=== PATIENT | male | born 1960 | race Caucasian/White ===

== ENCOUNTER 2017-08-14 04:11 | Emergency (ER) | payer BC ==
[2017-08-14] MEDS ORDERED: TAMSULOSIN 0.4 MG SR CAP ONE (04:38)
[2017-08-14] MEDS ORDERED: KETOROLAC 30 MG/ML INJ ONE (04:39)
[2017-08-14] MEDS ORDERED: NA CHLORIDE 0.9% 1,000 ML ONE ×2 (04:39→07:09)
[2017-08-14 05:08] LABS: Urine Blood 2+ (NEG); Urine Glucose TRACE (NEG); Urine Protein 1+ (NEG); Urine Specific Gravity 1.025 (1.005-1.030); Urine pH 5.5 (5.0-7.0)
[2017-08-14 05:13] LABS: Absolute Lymphocytes (CBC) 1.1 K/uL (0.7-4.9); Absolute Monocytes 0.8 K/uL (0.1-1.3); Absolute Neutrophil 9.6 K/uL (1.8-8.0); Basophils % 0.6 % (0-1.3); Eosinophils % 0.3 % (0-4.4); Lymphocytes % 9.2 % (15.3-44.8); MCH 30.3 pg (27.0-35.0); MCV 89.9 fL (80-100); MPV 9.2 fL (7.6-11.3); Monocytes % 7.2 % (3.3-12.3); RBC Red Blood Cell Count 5.12 M/uL (4.33-5.43)
[2017-08-14] MEDS ORDERED: ONDANSETRON 4 MG/2 ML VIAL ONE (05:23)
[2017-08-14 05:29] LABS: Albumin 4.2 g/dL (3.4-5.0); Bilirubin Total 0.6 mg/dL (0.2-1.0); Potassium 3.6 mmol/L (3.5-5.1); Protein, Total 7.8 g/dL (6.4-8.2)
[2017-08-14] MEDS ORDERED: FENTANYL CITR 100 MCG/2 ML ONE (06:49)
--- NOTE | 2017-08-14 07:07 | EDPHYS ---
Physician Documentation [facility] Name: Iván Betancourt Age: 57 yrs Sex: Male : 1960 Arrival Date: 08/14/2017 Time: 04:11 Bed 19 Private MD: Juan Antonio Leong ED Physician Johnny Noel HPI: 08/14 04:31 This 57 yrs old Male presents to ER via Ambulatory with complaints of jose Possible Kidney Stone. 04:31 The patient presents with abdominal pain in the upper abdomen, in the lower abdomen. jose Onset: The symptoms/episode began/occurred yesterday. The patient complains of pain in the right mid back and right low back. The pain radiates to the right mid back and right low back. Onset: The symptoms/episode began/occurred 1 day(s) ago. Modifying factors: The symptoms are alleviated by nothing. the symptoms are aggravated by nothing. The patient presents with pain that is acute. The symptoms are located in the coccyx area, right mid back and right low back. Onset: The symptoms/episode began/occurred yesterday. Historical: - Allergies: 04:31 No Known Allergies; wh - Home Meds: 04:31 Vimovo 500-20 mg oral TbID 1 tab daily [Active]; metformin 750 mg Oral Tb24 3 tabs once wh daily [Active]; losartan-hydrochlorothiazide 100-25 mg oral tab 1 tab once daily [Active]; - PMHx: 04:31 Diabetes - NIDDM; Hypertension; wh - Immunization history:: Adult Immunizations unknown. - Social history:: Smoking status: Patient/guardian denies using tobacco. - Ebola Screening: : Patient negative for fever greater than or equal to 101.5 degrees Fahrenheit, and additional compatible Ebola Virus Disease symptoms Patient denies exposure to infectious person. - Family history:: not pertinent. ROS: 04:31 Constitutional: Negative for fever, chills, and weight loss, Eyes: Negative for injury, jose pain, redness, and discharge, ENT: Negative for injury, pain, and discharge, Neck: Negative for injury, pain, and swelling, Cardiovascular: Negative for chest pain, palpitations, and edema, Respiratory: Negative for shortness of breath, cough, wheezing, and pleuritic chest pain, : Negative for injury, bleeding, discharge, and swelling, MS/Extremity: Negative for injury and deformity, Skin: Negative for injury, rash, and discoloration, Neuro: Negative for headache, weakness, numbness, tingling, and seizure, Psych: Negative for depression, anxiety, suicide ideation, homicidal ideation, and hallucinations, Allergy/Immunology: Negative for hives, rash, and allergies, Endocrine: Negative for neck swelling, polydipsia, polyuria, polyphagia, and marked weight changes, Hematologic/Lymphatic: Negative for swollen nodes, abnormal bleeding, and unusual bruising. 04:31 Abdomen/GI: Positive for abdominal pain, of the right lower quadrant. 04:31 Back: Positive for pain at rest, pain with movement, of the right mid back and right low back. Exam: 04:31 Constitutional: This is a well developed, well nourished patient who is awake, alert, jose and in no acute distress. Head/Face: Normocephalic, atraumatic. Eyes: Pupils equal round and reactive to light, extra-ocular motions intact. Lids and lashes normal. Conjunctiva and sclera are non-icteric and not injected. Cornea within normal limits. Periorbital areas with no swelling, redness, or edema. ENT: Nares patent. No nasal discharge, no septal abnormalities noted. Tympanic membranes are normal and external auditory canals are clear. Oropharynx with no redness, swelling, or masses, exudates, or evidence of obstruction, uvula midline. Mucous membranes moist. Neck: Trachea midline, no thyromegaly or masses palpated, and no cervical lymphadenopathy. Supple, full range of motion without nuchal rigidity, or vertebral point tenderness. No Meningismus. Chest/axilla: Normal chest wall appearance and motion. Nontender with no deformity. No lesions are appreciated. Cardiovascular: Regular rate and rhythm with a normal S1 and S2. No gallops, murmurs, or rubs. Normal PMI, no JVD. No pulse deficits. Respiratory: Lungs have equal breath sounds bilaterally, clear to auscultation and percussion. No rales, rhonchi or wheezes noted. No increased work of breathing, no retractions or nasal flaring. Abdomen/GI: Soft, non-tender, with normal bowel sounds. No distension or tympany. No guarding or rebound. No evidence of tenderness throughout. Male : Normal genitalia with no discharge or lesions. Skin: Warm, dry with normal turgor. Normal color with no rashes, no lesions, and no evidence of cellulitis. MS/ Extremity: Pulses equal, no cyanosis. Neurovascular intact. Full, normal range of motion. Neuro: Awake and alert, GCS 15, oriented to person, place, time, and situation. Cranial nerves II-XII grossly intact. Motor strength 5/5 in all extremities. Sensory grossly intact. Cerebellar exam normal. Normal gait. Psych: Awake, alert, with orientation to person, place and time. Behavior, mood, and affect are within normal limits. 04:31 Back: pain, that is mild, of the right mid back and right low back. Vital Signs: 04:32 BP 140 / 64; Pulse 73; Resp 19; Temp 98.6; Pulse Ox 96% on R/A; wh 05:38 BP 175 / 78; Pulse 65; Resp 18; Pulse Ox 96% on R/A; wh 06:38 BP 160 / 97; Pulse 74; Resp 18; Pulse Ox 99% on R/A; wh 07:15 BP 143 / 81; Pulse 67; Resp 16; Pulse Ox 97% on R/A; em 08:29 BP 135 / 78; Pulse 61; Resp 16; Pulse Ox 99% on R/A; Pain 0/10; em MDM: 04:26 Patient medically screened. [facility] 04:33 Data reviewed: vital signs, nurses notes, lab test result(s), radiologic studies, CT [facility] scan. 08/14 04:30 Order name: CBC with Diff [facility] 08/14 04:30 Order name: Comprehensive Metabolic Panel [facility] 08/14 04:30 Order name: Urine Culture [facility] 08/14 04:31 Order name: CBC with Automated Diff; Complete Time: 05:37 [facility] 08/14 04:31 Order name: Comprehensive Metabolic Panel; Complete Time: 05:37 [facility] 08/14 04:31 Order name: Urine Culture [facility] 08/14 04:30 Order name: CT Stone Protocol [facility] 08/14 05:04 Order name: Urine Dipstick--Ancillary (enter results) 08/14 05:06 Order name: Urine Dipstick-Ancillary; Complete Time: 05:37 [facility] 08/14 07:06 Order name: Abdomen 1 View (KUB) XRAY [facility] 08/14 04:30 Order name: Urine Dipstick-Ancillary (obtain specimen); Complete Time: 05:06 jose Administered Medications: 05:05 Drug: TORadol 30 mg Route: IVP; Site: left forearm; wh 07:00 Follow up: Response: No adverse reaction; Pain is decreased em 05:05 Drug: Flomax 0.4 mg Route: PO; wh 07:00 Follow up: Response: No adverse reaction em 05:06 Drug: NS 0.9% 1000 ml Route: IV; Rate: 1 bolus; Site: left forearm; wh 08:10 Follow up: IV Status: Completed infusion; IV Intake: 1000ml em 05:29 Drug: Zofran 4 mg Route: IVP; Site: left forearm; bp 07:14 Follow up: Response: No adverse reaction; Nausea is decreased em 06:50 Drug: fentaNYL (PF) 50 mcg Route: IVP; Site: left forearm; wh 07:14 Follow up: Response: No adverse reaction; Pain is decreased em 07:13 Drug: Rocephin - (cefTRIAXone) 1 grams Route: IVPB; Infused Over: 30 mins; Site: left ss forearm; 08:03 Follow up: Response: No adverse reaction; IV Status: Completed infusion em 07:14 Drug: NS 0.9% 1000 ml Route: IV; Rate: 1 bolus; Site: left forearm; em 08:03 Follow up: IV Status: Completed infusion; IV Intake: 1000ml em Disposition: 08/14/17 07:07 Discharged to Home. Impression: Hydronephrosis with renal and ureteral calculous obstruction, Unspecified kidney failure, Type 2 diabetes mellitus. - Condition is Stable. - Discharge Instructions: Type 2 Diabetes Mellitus, Adult, Kidney Stones, Kidney Stones, Yaoc-ed-Kimp, Hydronephrosis, Dietary Guidelines to Help Prevent Kidney Stones, Type 2 Diabetes Mellitus, Adult, [id number]. - Prescriptions for Tylenol- Codeine #3 300-30 mg Oral Tablet - take 2 tablet by ORAL route every 6 hours As needed; 30 tablet. Zofran 4 mg Oral Tablet - take 1 tablet by ORAL route every 12 hours As needed; 20 tablet. Flomax 0.4 mg Oral Capsule, Sust. Release 24 hr - take 1 capsule by ORAL route once daily 1/2 hour following the same meal each day; 30 capsule. Cipro 500 mg Oral Tablet - take 1 tablet by ORAL route every 12 hours for 7 days; 14 tablet. - Medication Reconciliation Form, Thank You Letter, Antibiotic Education, Prescription Opioid Use form. - Follow up: Juan Antonio Leong; When: 2 - 3 days; Reason: Recheck today's complaints, Continuance of care, Re-evaluation by your physician. Follow up: Rene Morgan; When: 2 - 3 days; Reason: Recheck today's complaints, Continuance of care, Re-evaluation by your physician. Follow up: Rene Morgan MD; When: Tomorrow; Reason: Recheck today's complaints, Re-evaluation by your physician. - Problem is new. - Symptoms have improved. Signatures: Dispatcher [employer] EDMS Johnny Noel MD MD cha Therrien, Shelly, INFECTIOUS WASTE TECHNICIAN-C INFECTIOUS WASTE TECHNICIAN-Csnw Lul Watson, CIRCULAR HEAD SAW OPERATOR CIRCULAR HEAD SAW OPERATOR em Sandi De Luna, Sandy Reyna RN, Brian, RN RN bp Corrections: (The following items were deleted from the chart) 08:31 07:07 08/14/2017 07:07 Discharged to Home. Impression: Hydronephrosis with renal and em ureteral calculous obstruction; Unspecified kidney failure; Type 2 diabetes mellitus. Condition is Stable. Discharge Instructions: Kidney Stones, Kidney Stones, [id number], Hydronephrosis, Dietary Guidelines to Help Prevent Kidney Stones, Type 2 Diabetes Mellitus, Adult, Type 2 Diabetes Mellitus, Adult, [id number]. Prescriptions for Tylenol-Codeine #3 300-30 mg Oral Tablet - take 2 tablet by ORAL route every 6 hours As needed; 30 tablet, Zofran 4 mg Oral Tablet - take 1 tablet by ORAL route every 12 hours As needed; 20 tablet, Flomax 0.4 mg Oral Capsule, Sust. Release 24 hr - take 1 capsule by ORAL route once daily 1/2 hour following the same meal each day; 30 capsule, Cipro 500 mg Oral Tablet - take 1 tablet by ORAL route every 12 hours for 7 days; 14 tablet. and Forms are Medication Reconciliation Form, Thank You Letter, Antibiotic Education, Prescription Opioid Use. Follow up: Juan Antonio Leong; When: 2 - 3 days; Reason: Recheck today's complaints, Continuance of care, Re-evaluation by your physician. Follow up: Rene Morgan; When: Tomorrow; Reason: Recheck today's complaints, Re-evaluation by your physician. Problem is new. Symptoms have improved. jose
--- NOTE | 2017-08-14 07:07 | ER ---
Nurse's Notes [facility] Name: Iván Betancourt Age: 57 yrs Sex: Male : 1960 Arrival Date: 08/14/2017 Time: 04:11 Bed 19 Private MD: Juan Antonio Leong Diagnosis: Hydronephrosis with renal and ureteral calculous obstruction;Unspecified kidney failure;Type 2 diabetes mellitus Presentation: 08/14 04:22 Presenting complaint: Patient states: states he has Hx of Kidney stones, was wh experiencing flank back pain since 4:00 pm yesterday, was taking Ibuprofen 800 mg for pain. Pt also C/O vomiting and cold sweats due to pain. Transition of care: patient was not received from another setting of care. Onset of symptoms was August 13, 2017. Risk Assessment: Do you want to hurt yourself or someone else? Patient reports no desire to harm self or others. Initial Sepsis Screen: Does the patient meet any 2 criteria? No. Patient's initial sepsis screen is negative. Does the patient have a suspected source of infection? No. Patient's initial sepsis screen is negative. Care prior to arrival: None. 04:22 Method Of Arrival: Ambulatory 04:22 Acuity: KAYE 3 Triage Assessment: 04:25 General: Appears in no apparent distress. General: Behavior is calm, cooperative, wh appropriate for age. Pain: Complains of pain in lower back pain Pain does not radiate. Pain currently is 0 out of 10 on a pain scale. at worst was 9 out of 10 on a pain scale. Pain began 1 day ago. GI: No signs and/or symptoms were reported involving the gastrointestinal system. Historical: - Allergies: :31 No Known Allergies; - Home Meds: : Vimovo 500-20 mg oral TbID 1 tab daily [Active]; metformin 750 mg Oral Tb24 3 tabs once wh daily [Active]; losartan-hydrochlorothiazide 100-25 mg oral tab 1 tab once daily [Active]; - PMHx: 04:31 Diabetes - NIDDM; Hypertension; wh - Immunization history:: Adult Immunizations unknown. - Social history:: Smoking status: Patient/guardian denies using tobacco. - Ebola Screening: : Patient negative for fever greater than or equal to 101.5 degrees Fahrenheit, and additional compatible Ebola Virus Disease symptoms Patient denies exposure to infectious person. - Family history:: not pertinent. Screenin:24 Abuse screen: Denies threats or abuse. Denies injuries from another. Nutritional wh screening: No deficits noted. Tuberculosis screening: No symptoms or risk factors identified. Fall Risk None identified. Assessment: 04:26 GI: Bowel sounds present X 4 quads. Abd is soft and non tender X 4 quads. wh 05:35 General: Appears in no apparent distress. Behavior is calm, cooperative, appropriate wh for age. Neuro: Level of Consciousness is awake, alert, obeys commands, Oriented to person, place, time, situation. Cardiovascular: Denies chest pain, Capillary refill < 3 seconds. Respiratory: Airway is patent Respiratory effort is even, unlabored, Respiratory pattern is regular, symmetrical. : Reports back pain and testicular pain, Pt states Hx of renal stones. EENT: No signs and/or symptoms were reported regarding the EENT system. Derm: Skin is intact, is healthy with good turgor, Skin is pink, warm \T\ dry. normal. Musculoskeletal: Range of motion: intact in all extremities. 06:38 Reassessment: Patient appears in no apparent distress at this time. Patient and/or wh family updated on plan of care and expected duration. Pain level reassessed. Patient is alert, oriented x 3, equal unlabored respirations, skin warm/dry/pink. 07:15 Reassessment: Patient appears in no apparent distress at this time. Patient and/or em family updated on plan of care and expected duration. Pain level reassessed. Patient is alert, oriented x 3, equal unlabored respirations, skin warm/dry/pink. pending NS bolus, will be discharged after completed, resting comfortably with eyes closed, denies pain Patient denies pain at this time. Patient states feeling better. 08:06 Reassessment: NS bolus completed, pending KUB X-ray. em Vital Signs: 04:32 BP 140 / 64; Pulse 73; Resp 19; Temp 98.6; Pulse Ox 96% on R/A; wh 05:38 BP 175 / 78; Pulse 65; Resp 18; Pulse Ox 96% on R/A; wh 06:38 BP 160 / 97; Pulse 74; Resp 18; Pulse Ox 99% on R/A; wh 07:15 BP 143 / 81; Pulse 67; Resp 16; Pulse Ox 97% on R/A; em 08:29 BP 135 / 78; Pulse 61; Resp 16; Pulse Ox 99% on R/A; Pain 0/10; em ED Course: 04:11 Patient arrived in ED. es 04:12 Juan Antonio Leong MD is Private Physician. es 04:17 Sandy Saucedo is Primary Nurse. wh 04:24 Triage completed. wh 04:26 oJhnny Noel MD is Attending Physician. jose 04:26 Arm band placed on left wrist. wh 04:31 Patient has correct armband on for positive identification. Placed in gown. Bed in low wh position. Call light in reach. Side rails up X 1. Pulse ox on. NIBP on. 04:49 Radiology exam delayed due to Labs being drawn at this time. sj 05:01 Inserted saline lock: 22 gauge in left forearm, using aseptic technique. Blood wh collected. 05:[address] via wheelchair. kw1 05:13 CT Stone Protocol In Process Unspecified. EDMS 05:14 CT completed. Patient tolerated procedure well. Patient moved back from CT. kw1 07:07 Juan Antonio Leong MD is Referral Physician. jose 07:07 Rene Morgan MD is Referral Physician. jose 07:07 Referral Physician role handed off by Rene Morgan MD jose 07:07 Rene Morgan MD is Referral Physician. jose 07:17 No provider procedures requiring assistance completed. em 08:20 Abdomen 1 View (KUB) XRAY In Process Unspecified. EDMS 08:28 IV discontinued, intact, bleeding controlled, No redness/swelling at site. Pressure em dressing applied. Administered Medications: 05:05 Drug: TORadol 30 mg Route: IVP; Site: left forearm; wh 07:00 Follow up: Response: No adverse reaction; Pain is decreased em 05:05 Drug: Flomax 0.4 mg Route: PO; wh 07:00 Follow up: Response: No adverse reaction em 05:06 Drug: NS 0.9% 1000 ml Route: IV; Rate: 1 bolus; Site: left forearm; wh 08:10 Follow up: IV Status: Completed infusion; IV Intake: 1000ml em 05:29 Drug: Zofran 4 mg Route: IVP; Site: left forearm; bp 07:14 Follow up: Response: No adverse reaction; Nausea is decreased em 06:50 Drug: fentaNYL (PF) 50 mcg Route: IVP; Site: left forearm; 07:14 Follow up: Response: No adverse reaction; Pain is decreased em 07:13 Drug: Rocephin - (cefTRIAXone) 1 grams Route: IVPB; Infused Over: 30 mins; Site: left ss forearm; 08:03 Follow up: Response: No adverse reaction; IV Status: Completed infusion em 07:14 Drug: NS 0.9% 1000 ml Route: IV; Rate: 1 bolus; Site: left forearm; em 08:03 Follow up: IV Status: Completed infusion; IV Intake: 1000ml em Intake: 08:03 IV: 1000ml; Total: 1000ml. em 08:10 IV: 1000ml; Total: 2000ml. em Outcome: 07:07 Discharge ordered by . [facility] 08:29 Discharged to home ambulatory. em 08:29 Condition: good 08:29 Discharge instructions given to patient, Instructed on discharge instructions, follow up and referral plans. medication usage, Demonstrated understanding of instructions, follow-up care, medications, Prescriptions given X 4. 08:31 Patient left the ED. em Signatures: Dispatcher [employer] EDMS Johnny Noel MD MD cha Salyer, Cher Keating Edgar, FABRIC WORKER FABRIC WORKER Sandi Campbell, Sandy Reyna RN, Brian, RN RN Marimar Kwon kw1 Corrections: (The following items were deleted from the chart) 05:03 04:42 Patient moved to [place] via wheelchair. kw1 kw1
[2017-08-14] MEDS ORDERED: CEFTRIAXONE/SWI 1gm 1 GM/10 ML SYR ONE (07:09)
--- NOTE | 2017-08-14 11:11 | RAD REPORT ---
EXAM DESCRIPTION: CT - Stone Protocol - 08/14/2017 7:07 am CLINICAL HISTORY: Flank pain. Abd pain;Flank pain COMPARISON: No comparisons TECHNIQUE: Axial images were obtained without oral or IV contrast. Lack of contrast limits solid org an and vascular assessment. The [id number] spans the entirety of the system partially obscuring uppermost abdomen and lung bases. Coronal reformatted images were obtained and reviewed. All CT scans are performed using dose optimization technique as appropriate and may include automated exposure control or mA/KV adjustment according to patient size. FINDINGS: The lower lung [place] are clear. Small ventral hernia. Imaged portions of the liver and spleen show no suspicious findings on non-contrast imaging. The panc reas and adrenal glands are normal. No pathologic lymphadenopathy in the abdomen or pelvis. 2 mm calculus is present at the right UVJ resulting moderate right hydronephrosis. Additional bilater al nephrolithiasis is present including 6 mm calculus in the upper pole right kidney and 15 mm calcul us (950 HU) in the upper pole left kidney. No bowel obstruction, free air, free fluid or abscess. Normal appendix noted. No significant bony abnormality. IMPRESSION: 2 mm right UVJ stone resulting in moderate right hydronephrosis. Additional bilateral nephrolithiasis as described.
--- NOTE | 2017-08-14 11:52 | RAD REPORT ---
EXAM DESCRIPTION: RAD - Abdomen 1 View (KUB) - 08/14/2017 8:20 am CLINICAL HISTORY: FLANK PAIN Pain COMPARISON: Stone Protocol dated 08/14/2017 FINDINGS: The bowel gas pattern is non-obstructive. No evidence of free air or pneumatosis. Calcific ations superimposed on both kidneys compatible with bilateral nephrolithiasis. No clearly visible pel batsheva calculus.
== END 2017-08-14 08:31 | disposition home or self-care (01) ==
LOC: ER 04:11
DX: N13.2 Hydronephrosis with renal and ureteral calculous obstruction (principal); N19 Unspecified kidney failure; E11.9 Type 2 diabetes mellitus without complications; I10 Essential (primary) hypertension
CPT/HCPCS: 36415; 74018; 74176; 76377; 80053; 81003; 85025; 87086; 87088; 96361; 96365; 96375; 99284; J0696; J2405; J3010; J7030

== ENCOUNTER 2022-07-16 19:28 | Emergency (ER) | payer BC ==
--- OUTSIDE RECORDS SUMMARY | 2022-07-16 19:32 | XMS REPORT | Continuity of Care Document ---
:1960 Author Organization [facility] t Address [address] [place] [address] [place] [id number] Care Team Providers Name Role Phone Padilla Cook Primary Care Physician Unavailable Alfredo Castellanos MD Attending Clinician Pilar Plata Attending Clinician Unavailable ALFREDO CASTELLANOS Attending Clinician Unavailable Doctor Unassigned, [place] Attending Clinician Unavailable Jm Matthews MD Attending Clinician Payers Payer Name Policy Type Policy Number Effective Date Expiration Date S ource Problems This patient has no known problems. Allergies, Adverse Reactions, Alerts Allergy Allergy Status Severity Reaction(s) Onset Inactive Treating Comm ents Source Name Type Date Date Clinician NO KNOWN Drug Active Univers ALLERGIE Class ity of S [facility] Social History Social Habit Start Date Stop Date Quantity Comments Source Exposure to Not sure [facility] SARS-CoV-2 (event) Medica l Branch Tobacco use and 2017-06-15 2017-06-15 Never used [facility] exposure 00:00:00 00:00:00 [facility] Sex Ass[birth year] At [birth year] [facility] 00:00:00 00:00:00 [facility] Smoking Status Start Date Stop Date Source Never smoker [facility] Medications Ordered Filled Start Stop Current Ordering Indication Dosage Frequency Signature Comments Components Source Medication Medication Date Date Medication? Clinician (SIG) Name Name metformin 2020-02 Yes [id number] 2250mg Take 3 Univers ER 750 mg 1-22 tablets by ity of 24 hr 00:00: mouth [place] tablet 00 daily with Medical breakfast. Branch metformin 2019-02 Yes [id number] 2250mg Take 3 Univers ER 750 mg 0-30 tablets by ity of 24 hr 00:00: mouth [place] tablet 00 daily with Medical breakfast. Branch metformin 2019-02 Yes [id number] 2250mg Take 3 Univers ER 750 mg 0-30 tablets by ity of 24 hr 00:00: mouth [place] tablet 00 daily with Medical breakfast. Branch metformin 2019-02 Yes [id number] 2250mg Take 3 Univers ER 750 mg 0-30 tablets by ity of 24 hr 00:00: mouth [place] tablet 00 daily with Medical breakfast. Branch metformin 2019-02- No [id number] 2250mg Take 3 Univers ER 750 mg 0-30 11-22 tablets by ity of 24 hr 00:00: 00:00 mouth [place] tablet 00 :00 daily with Medical breakfast. Branch CONTOUR 2020-0 Yes Use as Univers NEXT EZ 4-14 directed ity of METER Kit 00:00: to test [place] 00 blood Medical glucose Branch once daily. Dx E11.9BIN 30160,PCN3 F,groupNTX 70,idNRX79 [id number] MICROLET 2020-0 Yes Use as Univers LANCET Misc 4-14 directed ity of 00:00: to test [place] 00 blood Medical glucose Branch once daily. Dx E 11.9 CONTOUR 2020-0 Yes Use as Univers NEXT TEST 4-14 directed ity of STRIPS 00:00: to test [facility] 00 blood Medical glucose Branch once daily. Dx E 11.9 CONTOUR 2020-0 Yes Use as Univers NEXT EZ 4-14 directed ity of METER Kit 00:00: to test [place] 00 blood Medical glucose Branch once daily. Dx E11.9BIN 74511,PCN3 F,groupNTX 70,idNRX79 [id number] MICROLET 2020-0 Yes Use as Univers LANCET Misc 4-14 directed ity of 00:00: to test [place] 00 blood Medical glucose Branch once daily. Dx E 11.9 CONTOUR 2020-0 Yes Use as Univers NEXT TEST 4-14 directed ity of STRIPS 00:00: to test [facility] 00 blood Medical glucose Branch once daily. Dx E 11.9 CONTOUR 2020-0 Yes Use as Univers NEXT EZ 4-14 directed ity of METER Kit 00:00: to test [place] 00 blood Medical glucose Branch once daily. Dx E11.9BIN 89036,PCN3 F,groupNTX 70,idNRX79 [id number] MICROLET 2020-0 Yes Use as Univers LANCET Misc 4-14 directed ity of 00:00: to test [place] 00 blood Medical glucose Branch once daily. Dx E 11.9 CONTOUR 2020-0 Yes Use as Univers NEXT TEST 4-14 directed ity of STRIPS 00:00: to test [place] strip 00 blood Medical glucose Branch once daily. Dx E 11.9 CONTOUR 2020-0 Yes Use as Univers NEXT EZ 4-14 directed ity of METER Kit 00:00: to test [place] 00 blood Medical glucose Branch once daily. Dx E11.9BIN 24705,PCN3 F,groupNTX 70,idNRX79 [id number] MICROLET 2020-0 Yes Use as Univers LANCET Misc 4-14 directed ity of 00:00: to test [place] 00 blood Medical glucose Branch once daily. Dx E 11.9 CONTOUR 2020-0 Yes Use as Univers NEXT TEST 4-14 directed ity of STRIPS 00:00: to test [place] strip 00 blood Medical glucose Branch once daily. Dx E 11.9 CONTOUR 2020-0 Yes Use as Univers NEXT EZ 4-14 directed ity of METER Kit 00:00: to test [place] 00 blood Medical glucose Branch once daily. Dx E11.9BIN 40147,PCN3 F,groupNTX 70,idNRX79 [id number] MICROLET 2020-0 Yes Use as Univers LANCET Misc 4-14 directed ity of 00:00: to test [place] 00 blood Medical glucose Branch once daily. Dx E 11.9 CONTOUR 2020-0 Yes Use as Univers NEXT TEST 4-14 directed ity of STRIPS 00:00: to test [place] strip 00 blood Medical glucose Branch once daily. Dx E 11.9 CONTOUR 2020-0 Yes Use as Univers NEXT EZ 4-14 directed ity of METER Kit 00:00: to test [place] 00 blood Medical glucose Branch once daily. Dx E11.9BIN 60905,PCN3 F,groupNTX 70,idNRX79 [id number] MICROLET 2020-0 Yes Use as Univers LANCET Misc 4-14 directed ity of 00:00: to test [place] 00 blood Medical glucose Branch once daily. Dx E 11.9 CONTOUR 2020-0 Yes Use as Univers NEXT TEST 4-14 directed ity of STRIPS 00:00: to test [place] strip 00 blood Medical glucose Branch once daily. Dx E 11.9 CONTOUR 2020-0 Yes Use as Univers NEXT EZ 4-14 directed ity of METER Kit 00:00: to test [place] 00 blood Medical glucose Branch once daily. Dx E11.9BIN 84750,PCN3 F,groupNTX 70,idNRX79 [id number] MICROLET 2020-0 Yes Use as Univers LANCET Misc 4-14 directed ity of 00:00: to test [place] 00 blood Medical glucose Branch once daily. Dx E 11.9 CONTOUR 2020-0 Yes Use as Univers NEXT TEST 4-14 directed ity of STRIPS 00:00: to test [place] strip 00 blood Medical glucose Branch once daily. Dx E 11.9 CONTOUR 2020-0 Yes Use as Univers NEXT EZ 4-14 directed ity of METER Kit 00:00: to test [place] 00 blood Medical glucose Branch once daily. Dx E11.9BIN 05848,PCN3 F,groupNTX 70,idNRX79 [id number] MICROLET 2020-0 Yes Use as Univers LANCET Misc 4-14 directed ity of 00:00: to test [place] 00 blood Medical glucose Branch once daily. Dx E 11.9 CONTOUR 2020-0 Yes Use as Univers NEXT TEST 4-14 directed ity of STRIPS 00:00: to test [place] strip 00 blood Medical glucose Branch once daily. Dx E 11.9 CONTOUR 2020-0 Yes Use as Univers NEXT EZ 4-14 directed ity of METER Kit 00:00: to test [place] 00 blood Medical glucose Branch once daily. Dx E11.9BIN 11496,PCN3 F,groupNTX 70,idNRX79 [id number] MICROLET 2020-0 Yes Use as Univers LANCET Misc 4-14 directed ity of 00:00: to test [place] 00 blood Medical glucose Branch once daily. Dx E 11.9 CONTOUR 2020-0 Yes Use as Univers NEXT TEST 4-14 directed ity of STRIPS 00:00: to test [place] strip 00 blood Medical glucose Branch once daily. Dx E 11.9 metformin 2020-0 Yes [id number] 2250mg Take 3 Univers ER 750 mg 4-10 tablets by ity of 24 hr 00:00: mouth [place] tablet 00 daily with Medical breakfast. Branch metformin 2020-0 Yes [id number] 2250mg Take 3 Univers ER 750 mg 4-10 tablets by ity of 24 hr 00:00: mouth [place] tablet 00 daily with Medical breakfast. Branch metformin 2020-0 Yes [id number] 2250mg Take 3 Univers ER 750 mg 4-10 tablets by ity of 24 hr 00:00: mouth [place] tablet 00 daily with Medical breakfast. Branch metformin 2020-0 Yes [id number] 2250mg Take 3 Univers ER 750 mg 4-10 tablets by ity of 24 hr 00:00: mouth [place] tablet 00 daily with Medical breakfast. Branch metformin 2020-0 Yes [id number] 2250mg Take 3 Univers ER 750 mg 4-10 tablets by ity of 24 hr 00:00: mouth [place] tablet 00 daily with Medical breakfast. Branch metformin 2020-0 Yes [id number] 2250mg Take 3 Univers ER 750 mg 4-10 tablets by ity of 24 hr 00:00: mouth [place] tablet 00 daily with Medical breakfast. Branch metformin 2020-0 2020- No [id number] 2250mg Take 3 Univers ER 750 mg 4-10 10-30 tablets by ity of 24 hr 00:00: 00:00 mouth [place] tablet 00 :00 daily with Medical breakfast. Branch metformin 2020-0 2020- No [id number] 2250mg Take 3 Univers ER 750 mg 4-10 10-30 tablets by ity of 24 hr 00:00: 00:00 mouth [place] tablet 00 :00 daily with Medical breakfast. Branch blood sugar 2020-0 Yes Use as Univ ers diagnostic 05-22 directed ity o f strip 00:00: to check [place] 00 blood Medical sugar BID Branch DX: E11.9 Test [facility] Brand test strips. blood sugar 2020-0 Yes Use as Univ ers diagnostic 05-22 directed ity o f strip 00:00: to check [place] 00 blood Medical sugar BID Branch DX: E11.9 Test [facility] Brand test strips. blood sugar 2020-0 2020- No Use as Uni vers diagnostic 05-22 directed ity of strip 00:00: 00:00 to check [place] 00 :00 blood Medical sugar BID Branch DX: E11.9 Test [facility] Brand test strips. METFORMIN 2020-0 Yes [id number] 2250mg TAKE 3 Univers ER 750 mg 4-07 TABLETS BY ity of 24 hr 00:00: MOUTH [place] tablet 00 DAILY WITH Medical BREAKFAST Branch METFORMIN 2020-0 Yes [id number] 2250mg TAKE 3 Univers ER 750 mg 4-07 TABLETS BY ity of 24 hr 00:00: MOUTH [place] tablet 00 DAILY WITH Medical BREAKFAST Branch METFORMIN 2020-0 2020- No [id number] 2250mg TAKE 3 Univers ER 750 mg 4-07 04-10 TABLETS BY ity of 24 hr 00:00: 00:00 MOUTH [place] tablet 00 :00 DAILY WITH Medical BREAKFAST Branch METFORMIN 2019-0 Yes [id number] 2250mg TAKE 3 Univers ER 750 mg 9-08 TABLETS BY ity of 24 hr 00:00: MOUTH [place] tablet 00 DAILY WITH Medical BREAKFAST Branch METFORMIN 2019-0 2020- No [id number] 2250mg TAKE 3 Univers ER 750 mg 9-08 04-07 TABLETS BY ity of 24 hr 00:00: 00:00 MOUTH [place] tablet 00 :00 DAILY WITH Medical BREAKFAST Branch METFORMIN 2019-0 2019- No [id number] 2250mg TAKE 3 Univers ER 750 mg 5-13 09-05 TABLETS BY ity of 24 hr 00:00: 00:00 MOUTH [place] tablet 00 :00 DAILY WITH Medical BREAKFAST Branch blood-gluco 2018-0 Yes Use as Univ ers se meter 7-12 directed ity of (RELION 00:00: to check [place] CONFIRM/CHALINO 00 blood Medical RO) Test sugar Branch Strips daily DX: E11.9 blood-gluco 2017-0 Yes Use as Univ ers se meter 7-12 directed ity of (RELION 00:00: to check [place] CONFIRM/CHAL[place] 00 blood Medical RO) Test sugar Branch Strips daily DX: E11.9 blood-gluco 2018-0 Yes Use as Univ ers se meter 7-12 directed ity of (RELION 00:00: to check [place] CONFIRM/CHALINO 00 blood Medical RO) Test sugar Branch Strips daily DX: E11.9 blood-gluco 2018-0 Yes Use as Univ ers se meter 7-12 directed ity of (RELION 00:00: to check [place] CONFIRM/CHALINO 00 blood Medical RO) Test sugar Branch Strips daily DX: E11.9 blood-gluco 2018-0 2020- No Use as Uni vers se meter 7-12 04-14 directed ity of (RELION 00:00: 00:00 to check [place] CONFIRM/CHALINO 00 :00 blood Medical RO) Test sugar Branch Strips daily DX: E11.9 Blood-Gluco 2018-0 Yes Use as Univ ers se Meter 7-06 directed ity of Kit 00:00: to check [place] 00 blood Medical sugar Branch daily DX: E11.9 lancets 33 2018-0 Yes Use as Unive rs gauge Misc 7-06 directed ity o f 00:00: to check [place] 00 blood Medical sugar Branch daily DX: E11.9 Blood-Gluco 2018-0 Yes Use as Univ ers se Meter 7-06 directed ity of Kit 00:00: to check [place] 00 blood Medical sugar Branch daily DX: E11.9 lancets 33 2018-0 Yes Use as Unive rs gauge Misc 7-06 directed ity o f 00:00: to check [place] 00 blood Medical sugar Branch daily DX: E11.9 Blood-Gluco 2018-0 Yes Use as Univ ers se Meter 7-06 directed ity of Kit 00:00: to check [place] 00 blood Medical sugar Branch daily DX: E11.9 lancets 33 2018-0 Yes Use as Unive rs gauge Misc 7-06 directed ity o f 00:00: to check [place] 00 blood Medical sugar Branch daily DX: E11.9 Blood-Gluco 2018-0 Yes Use as Univ ers se Meter 7-06 directed ity of Kit 00:00: to check [place] 00 blood Medical sugar Branch daily DX: E11.9 lancets 33 2018-0 Yes Use as Unive rs gauge Misc 7-06 directed ity o f 00:00: to check [place] 00 blood Medical sugar Branch daily DX: E11.9 Blood-Gluco 2018-0 2020- No Use as Uni vers se Meter 714 directed ity of Kit 00:00: 00:00 to check [place] 00 :00 blood Medical sugar Branch daily DX: E11.9 lancets 33 2018-0 2020- No Use as Univ ers gauge Misc 08-1914 directed ity of 00:00: 00:00 to check [place] 00 :00 blood Medical sugar Branch daily DX: E11.9 losartan-hy 2018-0 Yes TK 1 T PO U nivers drochloroth 3-14 QD ity of iazide 00:00: [place] 100-25 mg 00 Medical per tablet Branch losartan-hy 2018-0 Yes TK 1 T PO U nivers drochloroth 3-14 QD ity of iazide 00:00: [place] 100-25 mg 00 Medical per tablet Branch losartan-hy 2018-0 Yes TK 1 T PO U nivers drochloroth 3-14 QD ity of iazide 00:00: [place] 100-25 mg 00 Medical per tablet Branch losartan-hy 2017-0 Yes TK 1 T PO U nivers drochloroth 3-14 QD ity of iazide 00:00: [place] 100-25 mg 00 Medical per tablet Branch losartan-hy 2017-0 Yes TK 1 T PO U nivers drochloroth 3-14 QD ity of iazide 00:00: [place] 100-25 mg 00 Medical per tablet Branch losartan-hy Yes TK 1 T PO U nivers drochloroth 3-14 QD ity of iazide 00:00: [place] 100-25 mg 00 Medical per tablet Branch losartan-hy Yes TK 1 T PO U nivers drochloroth 3-14 QD ity of iazide 00:00: [place] 100-25 mg 00 Medical per tablet Branch losartan-hy Yes TK 1 T PO U nivers drochloroth 3-14 QD ity of iazide 00:00: [place] 100-25 mg 00 Medical per tablet Branch losartan-hy Yes TK 1 T PO U nivers drochloroth 3-14 QD ity of iazide 00:00: [place] 100-25 mg 00 Medical per tablet Branch losartan-hy 2017-0 Yes TK 1 T PO U nivers drochloroth 3-14 QD ity of iazide 00:00: [place] 100-25 mg 00 Medical per tablet Branch losartan-hy 2017-0 Yes TK 1 T PO U nivers drochloroth 3-14 QD ity of iazide 00:00: [place] 100-25 mg 00 Medical per tablet Branch losartan-hy 2017-0 Yes TK 1 T PO U nivers drochloroth 3-14 QD ity of iazide 00:00: [place] 100-25 mg 00 Medical per tablet Branch losartan-hy 2017-0 Yes TK 1 T PO U nivers drochloroth 3-14 QD ity of iazide 00:00: [place] 100-25 mg 00 Medical per tablet Branch VIMOVO 2018-0 Yes Univers 500-20 mg 3-06 ity of per tablet 00:00: [place] 00 Medical Branch VIMOVO 2018-0 Yes Univers 500-20 mg 3-06 ity of per tablet 00:00: [place] 00 Medical Branch VIMOVO 2018-0 Yes Univers 500-20 mg 3-06 ity of per tablet 00:00: [place] [address] Medical Branch VIMOVO 2018-0 Yes Univers 500-20 mg 3-06 ity of per tablet 00:00: [place] [address] Medical Branch VIMOVO 2018-0 Yes Univers 500-20 mg 3-06 ity of per tablet 00:00: [place] [address] Medical Branch VIMOVO 2018-0 Yes Univers 500-20 mg 3-06 ity of per tablet 00:00: [place] [address] Medical Branch VIMOVO 2018-0 Yes Univers 500-20 mg 3-06 ity of per tablet 00:00: [place] [address] Medical Branch VIMOVO 2018-0 Yes Univers 500-20 mg 3-06 ity of per tablet 00:00: [place] [address] Medical Branch VIMOVO 2018-0 Yes Univers 500-20 mg 3-06 ity of per tablet 00:00: [place] [address] Medical Branch VIMOVO 2018-0 Yes Univers 500-20 mg 3-06 ity of per tablet 00:00: [place] [address] Medical Branch VIMOVO 2018-0 Yes Univers 500-20 mg 3-06 ity of per tablet 00:00: [place] [address] Medical Branch VIMOVO 2018-0 Yes Univers 500-20 mg 3-06 ity of per tablet 00:00: [place] [address] Medical Branch VIMOVO 2018-0 Yes Univers 500-20 mg 3-06 ity of per tablet 00:00: [place] [address] Medical Branch ibuprofen 2018-0 Yes Univers 800 mg 1-22 ity of tablet 00:00: [place] [address] Medical Branch ibuprofen 2018-0 Yes Univers 800 mg 1-22 ity of tablet 00:00: [place] [address] Medical Branch ibuprofen 2018-0 Yes Univers 800 mg 1-22 ity of tablet 00:00: [place] [address] Medical Branch ibuprofen 2018-0 Yes Univers 800 mg 1-22 ity of tablet 00:00: [place] [address] Medical Branch ibuprofen 2018-0 Yes Univers 800 mg 1-22 ity of tablet 00:00: [place] [address] Medical Branch ibuprofen 2018-0 Yes Univers 800 mg 1-22 ity of tablet 00:00: [place] [address] Medical Branch ibuprofen 2018-0 Yes Univers 800 mg 1-22 ity of tablet 00:00: [place] [address] Medical Branch ibuprofen 2018-0 Yes Univers 800 mg 1-22 ity of tablet 00:00: [place] [address] Medical Branch ibuprofen 2018-0 Yes Univers 800 mg 1-22 ity of tablet 00:00: [place] [facility] Branch ibuprofen 2018-0 Yes Univers 800 mg 1-22 ity of tablet 00:00: [place] [facility] Branch ibuprofen 2018-0 Yes Univers 800 mg 1-22 ity of tablet 00:00: [place] [facility] Branch ibuprofen 2018-0 Yes Univers 800 mg 1-22 ity of tablet 00:00: [address] Branch ibuprofen 2018-0 Yes Univers 800 mg 1-22 ity of tablet 00:00: [address] Vital Signs Vital Name Observation Time Observation Value Comments Source Systolic blood 2019-12-14 21:01:00 131 mm[Hg] [facility]iver [facility] Diastolic blood 2019-12-14 21:01:00 89 mm[Hg] Unive rsity [facility] Heart rate 2019-12-14 21:01:00 97 /min [facility] Body height 2019-12-14 21:01:[address] [facility] Body weight 2019-12-14 21:01:[address] [facility] BMI 2019-12-14 21:01:00 39.82 kg/m2 [facility] Procedures Procedure Date / Time Performing Clinician Source Performed LIPID PANEL-Q 2019-12-31 15:37:00 Alfredo Castellanos [facility] COMPREHENSIVE 2019-12-31 15:37:00 Alfredo Castellanos [facility] METABOLIC$PANEL W/EGFR-Q [facility] CONSENT/REFUSAL FOR 2019-12-14 20:41:36 Doctor Unassigned, No [facility] DIAGNOSIS AND TREATMENT [facility] ASSIGNMENT OF BENEFITS 2019-12-14 20:41:19 Doctor Unassigned, No [facility] POCT HEMOGLOBIN A1C TEST 2019-12-14 00:00:00 [facility] Start End Encounter Admission Attending Care Care Encounter Source Date/Time Date/Time Type Type Clinicians Facility Department ID 2021-01-02 2021-01-02 Telephone TAYLA Castellanos [id number] [facility] 00:00:00 00:00:00 Alfredo ISIDRO [id number] i alvin [facility] [id number] [id number] [address] 2020-09-22 2020-09-22 Outpatient Elective Pilar Plata MCSETXm MCSETXm [id number] MCSETXm 16:34:00 16:34:00 Yunier Yee 2019-12-31 2019-12-31 Orders TALAT Castellanos [id number] Univers 00:00:00 00:00:00 Only Alfredo LEWIS [id number] it y of [facility] 4.2.7.2.686 Ben as [id number] [address] 2019-12-14 2019-12-14 [facility] [id number] Univers 15:42:19 16:40:08 Visit Alfredo Isidro [id number] [place] [phone] [address] 2019-12-14 2019-12-14 [facility] [id number] Univers 16:00:00 16:00:00 ALFREDO pablo [facility] [place] 2019-12-14 2019-12-14 Orders Doctor GILLILAND [id number] Univers 00:00:00 00:00:00 Only Unassigned, JOSHUA [id number] ity of [place] [facility] 4.2.7.2.686 Ben as [id number] [address] 2019-10-17 2019-10-17 [facility] [id number] Univers 00:00:00 00:00:00 Alfredo Isidro 350.1.13.10 [place] [id number] [address] 2019-08-31 2019-08-31 [facility] [id number] Univers 15:30:00 15:30:00 ALFREDO pablo [facility] [place] 2019-07-10 2019-07-10 [facility] [id number] Univers 00:00:00 00:00:00 Alfredo H Bella [id number] [place] [phone] [address] 2019-05-29 2019-05-29 Telephone [facility] [id number] Univers 00:00:00 00:00:00 Alfredo Blaine Bella [id number] i [place] [id number] [address] 2019-05-25 2019-05-25 Telemedici [facility] [id number] Univers 08:15:34 17:13:18 ne Visit Alfredo Isidro 350.1.13.10 it[place] [phone] [address] 2019-05-25 2019-05-25 [facility] [id number] Univers 15:00:00 15:00:00 ALFREDO pablo [facility] [place] 2019-05-23 2019-05-23 Telephone [facility] [id number] Univers 00:00:00 00:00:00 Alfredo Isidro 350.1.13.10 i [place] [id number] [address] 2019-05-21 2019-05-[address] [facility] [id number] Univers 00:00:00 00:00:00 Jm Isidro 350.1.13.10 i ty [place] 4[place]2.[place] [id number] [address] 2018-10-19 2018-10-19 [facility] [id number] Univers 00:00:00 00:00:00 Alfredo Isidro 350.1.13.10 i ty michael Escobar 4.2.7.2.686 Shu Vincentio [id number] Nv dical nal [address] Results Test Description Test Time Test Comments Results Result Comments Source LIPID PANEL-Q 2020-01-01 11:00:00 Test Item Value Reference Range Interpretation Comme nts CHOLESTEROL, TOTAL-Q 182 mg/dL <200 (test code = 2093-3) HDL CHOLESTEROL-Q (test 39 mg/dL See_Comment L [Au tomated message] The code = 2085-9) system which generated this result tra nsmitted reference range : > OR = 40. The referen ce range was not used to interpret this result as normal/abnormal . TRIGLYCERIDES-Q (test 299 mg/dL <150 H If a non-fasting code = 2571-8) specimen was collected, considerrepeat triglyceride te sting on a fasting speci menif clinically natalya cated. Margaret et al. J. of Clin. Lipidol. 2015;9:129-169. LUN-HRIEMHUXANE-G (test mg/dL (calc) H Refe rence range: <100 code = 85869-1) Desirable ra nge <100 mg/dL for prima ry prevention; ?<7 0 mg/dL for patients wi th CHD or diabetic patien ts with > or = 2 CHD risk factors. LDL-C is now ca lculated using the Tiffanie myers-Irina calculation, wh ich is a validated novel method providing tito r accuracy than t he Radhaald equa tion in the estimation of LDL-C. Migel SS et al . JAMIR. 2013;310(52): 0 061-9992 (http://educati on.Aquaporin.SiTune/ faq/FAQ16 4) CHOL/HDLC RATIO-Q (test See_Comment [Au tomated message] The code = 9830-1) system which generated this result tra nsmitted reference range : <5.0 (calc). The ref erence range was not u sed to interpret this result as normal/abnormal . NON-HDL CHOLESTEROL-Q See_Comment H For pa rex with (test code = 21460-2) diabet es plus 1 major ASCVD risk fact or, treating to a n on-HDL-C goal of <100 mg /dL (LDL-C of <70 m g/dL) is considered a th erapeutic option. [Automa nereyda message] The sy stem which generated this result transmit nereyda reference range : <130 mg/dL (calc). T he reference range was not used to interpr et this result as normal/abnormal . SIM (test code = SIM) PERFORMED BY [employer] [place]; [address] [place] [address]; FEMI LÓPEZ MD Lab Interpretation (test Abnormal code = 60864-4) [facility]PANEL W/EGFR-Q 2020-01-01 11:00:00 Test Item Value Reference Interpretation Comments Range GLUCOSE-Q (test 232 mg/dL 65-99 H ? F asting code = 2345-7) reference int erval For someone wit hout known diabetes, a glucosevalue >1 25 mg/dL indicates that they may havedi abetes and this should be confirmed with afollow-up test . UREA NITROGEN 18 mg/dL 7-25 (BUN)-Q (test code = 3094-0) CREATININE-Q (test 1.04 mg/dL 0.7-1.25 For patie nts >49 code = 2160-0) years of age, the reference limit for Creatinine is approximately 1 3% higher for peopleidentifie d as -[place] n. eGFR NON-AFR. See_Comment [Automated me ssage] NIGERIEN-Q (test The system which code = 48256-6) generated th is result transmitted ref erence range: > OR = 6 0 mL/min/1.73m2. The reference range was not used to int erpret this result as normal/abnormal . eGFR See_Comment [Automated mes rocky] NIGERIEN-Q (test The system which code = 38054-4) generated th is result transmitted ref erence range: > OR = 6 0 mL/min/1.73m2. The reference range was not used to int erpret this result as normal/abnormal . BUN/CREATININE NOT APPLICABLE See_Comment [Automated message] RATIO-Q (test code The syste m which = 3097-3) generated this result transmitted ref erence range: 6 - 22 ( calc). The reference r adeola was not used to interpret this result as normal/abnor mal. SODIUM-Q (test code 138 mmol/L 135-146 = 2951-2) POTASSIUM-Q (test 4.3 mmol/L 3.5-5.3 code = 2823-3) CHLORIDE-Q (test 103 mmol/L 98-110 code = 2075-0) CARBON DIOXIDE-Q 30 mmol/L 20-32 (test code = 8-9) CALCIUM-Q (test 9.3 mg/dL 8.6-10.3 code = 11577-8) PROTEIN, TOTAL-Q 6.9 g/dL 6.1-8.1 (test code = 2885-2) ALBUMIN-Q (test 4.2 g/dL 3.6-5.1 code = 1751-7) GLOBULIN-Q (test See_Comment [Automated message] code = 52048-8) The system w [employer] generated this result transmitted ref erence range: 1.9 - 3. 7 g/dL (calc). The ref erence range was not u sed to interpret this result as normal/abnor mal. ALBUMIN/GLOBULIN See_Comment [Automated message] RATIO-Q (test code The syste m which = 1759-0) generated this result transmitted ref erence range: 1.0 - 2. 5 (calc). The ref erence range was not u sed to interpret this result as normal/abnor mal. BILIRUBIN, TOTAL-Q 0.5 mg/dL 0.2-1.2 (test code = 1975-2) ALKALINE 88 U/L 35-144 PHOSPHATASE-Q (test code = 6768-6) AST-Q (test code = 15 U/L 10-35 1920-8) ALT-Q (test code = 21 U/L 9-46 1742-6) SIM (test code = PERFORMED BY SIM) [facility] [place]; [address] [place] [address]; FEMI LÓPEZ MD Lab Interpretation Abnormal (test code = 46282-0) [facility] HEMOGLOBIN A1C [id number] 21:02:00 Test Item Value Reference Range Interpretation Comments POCT HBA1C (test code = 4548-4) 8.4 % 4-6 A Lab Interpretation (test code = Abnormal 95379-7) [facility] [id number] 21:02:00 Test Item Value Reference Range Interpretation Comments POCT HBA1C (test code = 4548-4) 8.4 % 4-6 A Lab Interpretation (test code = Abnormal 91456-8) [facility] Fluor[facility] Assistance per [id number] 10:02:51Patient: IVÁN VERMA Date/Time09/05/2018 09:46 CDTReason for ExamCystoReportXRFLUOROSCOPY ASSISTANCE PER HOUR/BILATERAL RETROGRADE PYELOGRAM.DIAGNOSIS: Bilateral renal calculi. Bilateral retrograde pyelogram was performed with placement of bilateral ureteral stent catheters.Fiveradiographs of the abdomen were obtained utilizing 46 seconds and 20 mL of Omnipaque 300.IMPRESSION:Status post bilateral retrograde pyelogram with ureteral stent catheter placement. Final Dictated by: MD Yancey Michael JackDictated DT/TM: 09/05/2018 9:59 amSigned by: MD Yancey Michael J acJasperigned (Electronic Signature): 09/05/2018 10:02 amPOC [id number] 06:25:16 Test Item Value Reference Range Interpretation Comments Glucose POC (test 168 mg/dL 74-106 H POC Glucos e used on code = Glucose POC) critical ly ill patients is considered " off-label use" and has no t been cleared or appr cong by the FDA. Altern ative testing methods should be considered i f the patient is crit ically ill. XR Chest 2 [id number] 16:37:20Patient: IVÁN VERMA Date/Time08/30/2018 16:35 CDTReason for ExamPRE-OP;Other (please specify)ReportCHEST PA AND LATERAL:COMPARISON: NoneCLINICAL INFORMATION: Preoperative respiratory examination.Cardiomediastinal structures are within normal limits. No pleural fluid or pulmonaryinfiltrates are identified. 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 There are spondylo arthritic changes within the dorsal spine.IMPRESSION:1. No radiographic findings of acute cardiopulmonary disease. Final Dictated by: LunaMD Arthur LDictated DT/TM: 08/30/2018 4:36 pmSigned by: MD Luna Arthur LSigned (Electronic Signature): 08/30/2018 4:37 pmXR Fluoroscopy Assistance per Hour 2018-08-10 12:45:49Patient: IVÁN VERMA Date/Time08/10/2018 12:39 CDTReason for Examrenal calculiReportXR FLUOROSCOPY ASSISTANCE PER HOUR BILATERAL RETROGRADE PYELOGRAMDIAGNOSIS: Right ureteral calculusBilateral hydronephrosis is noted. The ureters are dilated.Bilateral ureteral stent catheter placement and was observed.The study is compared to the previous examination dated 07/27/2018.The fluoroscopic time was 55 seconds utilizing nine digital images and 20 cc of Omnipaque 300.IMPRESSION: Status post bilateral ureteral stent catheter placement. Final Dictated by: MD Yancey Michael JackDictated DT/TM: 08/10/2018 12:41 pmSigned by: MD Yancey Michael JackSigned (Electronic Signature): 08/10/2018 12:45 pmPOC Glucose 2018-08-10 08:49:17 Test Item Value Reference Range Interpretation Comments Glucose POC (test 117 mg/dL 74-106 H POC Glucos e used on code = Glucose POC) critical ly ill patients is considered " off-label use" and has no t been cleared or appr cong by the FDA. Altern ative testing methods should be considered i f the patient is crit ically ill. Blood [id number] 12:02:11No growth at 5 days.Blood Gbwmgds3242-24-32 12:01:35No growth at 5 days.Comprehensive Metabolic [id number] 07:28:15 Test Item Value Reference Range Interpretation Comments Sodium Level (test code = 142 mmol/L 136-145 Sodium Level) Potassium Level (test code = 3.8 mmol/L 3.5-5.1 Potassium Level) Chloride Level (test code = 107 mmol/L 98-107 Chloride Level) CO2 (test code = CO2) 26 mmol/L 21-32 Anion Gap (test code = Anion 9 mmol/L 7-16 Gap) BUN (test code = BUN) 16 mg/dL 7-18 Creatinine Level (test code = 1.1 mg/dL 0.7-1.3 Creatinine Level) Glucose Level (test code = 127 mg/dL 74-106 H Glucose Level) Calcium Level (test code = 8.7 mg/dL 8.5-10.1 Calcium Level) Alk Phos (test code = Alk Phos) 65 IntlUnit/L 45-122 Bilirubin Total (test code = 0.5 mg/dL 0.2-1.0 Bilirubin Total) Albumin Level (test code = 3.3 g/dL 3.4-5.0 L Albumin Level) Protein Total (test code = 6.0 g/dL 6.4-8.2 L Protein Total) ALT (test code = ALT) 20 IntlUnit/L 12-78 AST (test code = AST) 13 IntlUnit/L 34 Comprehensive Metabolic [id number] 07:28:15 Test Item Value Reference Range Interpretation Comments Sodium Level (test code = 142 mmol/L 136-145 Sodium Level) Potassium Level (test code 3.8 mmol/L 3.5-5.1 = Potassium Level) Chloride Level (test code 107 mmol/L 98-107 = Chloride Level) CO2 (test code = CO2) 26 mmol/L 21-32 Anion Gap (test code = 9 mmol/L 7-16 Anion Gap) BUN (test code = BUN) 16 mg/dL 7-18 Creatinine Level (test 1.1 mg/dL 0.7-1.3 code = Creatinine Level) Glucose Level (test code = 127 mg/dL 74-106 H Glucose Level) Calcium Level (test code = 8.7 mg/dL 8.5-10.1 Calcium Level) Alk Phos (test code = Alk 65 IntlUnit/L 45-122 Phos) Bilirubin Total (test code 0.5 mg/dL 0.2-1.0 = Bilirubin Total) Albumin Level (test code = 3.3 g/dL 3.4-5.0 L Albumin Level) Protein Total (test code = 6.0 g/dL 6.4-8.2 L Protein Total) ALT (test code = ALT) 20 IntlUnit/L 12-78 AST (test code = AST) 13 IntlUnit/L 1034 eGFR AA (test code = eGFR >60 mL/min/1.73 m2 N AA) Comprehensive Metabolic [id number] 07:28:15 Test Item Value Reference Range Interpretation Comments Sodium Level (test code = 142 mmol/L 136-145 Sodium Level) Potassium Level (test code 3.8 mmol/L 3.5-5.1 = Potassium Level) Chloride Level (test code 107 mmol/L 98-107 = Chloride Level) CO2 (test code = CO2) 26 mmol/L 21-32 Anion Gap (test code = 9 mmol/L 7-16 Anion Gap) BUN (test code = BUN) 16 mg/dL 7-18 Creatinine Level (test 1.1 mg/dL 0.7-1.3 code = Creatinine Level) Glucose Level (test code = 127 mg/dL 74-106 H Glucose Level) Calcium Level (test code = 8.7 mg/dL 8.5-10.1 Calcium Level) Alk Phos (test code = Alk 65 IntlUnit/L 45-122 Phos) Bilirubin Total (test code 0.5 mg/dL 0.2-1.0 = Bilirubin Total) Albumin Level (test code = 3.3 g/dL 3.4-5.0 L Albumin Level) Protein Total (test code = 6.0 g/dL 6.4-8.2 L Protein Total) ALT (test code = ALT) 20 IntlUnit/L 12-78 AST (test code = AST) 13 IntlUnit/L 10-34 eGFR AA (test code = eGFR >60 mL/min/1.73 m2 N AA) eGFR Non-AA (test code = >60 mL/min/1.73 m2 N eGFR Non-AA) Complete Blood Count with [id number] 07:09:36 Test Item Value Reference Range Interpretation Comments WBC (test code = WBC) 7.2 x10 4.8-10.8 RBC (test code = RBC) 4.10 x10 4.60-6.20 L Hgb (test code = Hgb) 12.5 g/dL 14.0-18.0 L Hct (test code = Hct) 37.5 % 38.0-52.0 L MCV (test code = MCV) 91.3 fL 80.0-95.0 RDW (test code = RDW) 12.3 % 11.5-14.5 MCHC (test code = MCHC) 33.3 g/dL 31.0-36.0 MCH (test code = MCH) 30.4 pg 26.0-32.0 Platelets (test code = 228 x10 140-440 Platelets) MPV (test code = MPV) 8.4 fL 7.5-11.2 Slide Review (test code Auto N Resu lt created by = Slide Review) GL_SET_SLIDE _REVIEW_A UTO Automated [id number] 07:09:36 Test Item Value Reference Range Interpretation Comments Neutro Auto (test code = Neutro Auto) 57.5 % N Lymph Auto (test code = Lymph Auto) 32.8 % N Bollinger Auto (test code = Bollinger Auto) 7.1 % N Eos, Auto (test code = Eos, Auto) 1.9 % N Basophil Auto (test code = Basophil 0.7 % N Auto) Neutro Absolute (test code = Neutro 4.2 x10 2.7-7.3 Absolute) Lymph Absolute (test code = Lymph 2.4 x10 0.8-3.5 Absolute) Bollinger Absolute (test code = Bollinger 0.5 x10 0.3-0.9 Absolute) Eos Absolute (test code = Eos 0.1 x10 0.0-0.3 Absolute) Baso Absolute (test code = Baso 0.0 x10 0.0-0.1 Absolute) Urine [id number] 06:40:59 C Urine Added by GL_SET_CULT_RFLXNo growth at 2 days.POC [id number] 05:31:35 Test Item Value Reference Range Interpretation Comments Glucose POC (test 140 mg/dL 74-106 H POC Glucos e used on code = Glucose POC) critical ly ill patients is considered " off-label use" and has no t been cleared or appr cong by the FDA. Altern ative testing methods should be considered i f the patient is crit ically ill. POC [id number] 23:42:32 Test Item Value Reference Range Interpretation Comments Glucose POC (test 173 mg/dL 74-106 H POC Glucos e used on code = Glucose POC) critical ly ill patients is considered " off-label use" and has no t been cleared or appr cong by the FDA. Altern ative testing methods should be considered i f the patient is crit ically ill. Basic Metabolic [id number] 13:13:57 Test Item Value Reference Range Interpretation Comments Sodium Level (test code = 141 mmol/L 136-145 Sodium Level) Potassium Level (test code 4.0 mmol/L 3.5-5.1 = Potassium Level) Chloride Level (test code 109 mmol/L 98-107 H = Chloride Level) CO2 (test code = CO2) 25 mmol/L 21-32 Anion Gap (test code = 7 mmol/L 7-16 Anion Gap) BUN (test code = BUN) 22 mg/dL 7-18 H Creatinine Level (test 1.4 mg/dL 0.7-1.3 H code = Creatinine Level) Glucose Level (test code = 160 mg/dL 74-106 H Glucose Level) Calcium Level (test code = 8.2 mg/dL 8.5-10.1 L Calcium Level) eGFR AA (test code = eGFR >60 mL/min/1.73 m2 N AA) Basic Metabolic [id number] 13:13:57 Test Item Value Reference Range Interpretation Comments Sodium Level (test code = 141 mmol/L 136-145 Sodium Level) Potassium Level (test code 4.0 mmol/L 3.5-5.1 = Potassium Level) Chloride Level (test code 109 mmol/L 98-107 H = Chloride Level) CO2 (test code = CO2) 25 mmol/L 21-32 Anion Gap (test code = 7 mmol/L 7-16 Anion Gap) BUN (test code = BUN) 22 mg/dL 7-18 H Creatinine Level (test 1.4 mg/dL 0.7-1.3 H code = Creatinine Level) Glucose Level (test code = 160 mg/dL 74-106 H Glucose Level) Calcium Level (test code = 8.2 mg/dL 8.5-10.1 L Calcium Level) eGFR AA (test code = eGFR >60 mL/min/1.73 m2 N AA) eGFR Non-AA (test code = 52 mL/min/1.73 m2 N eGFR Non-AA) Basic Metabolic [id number] 13:13:57 Test Item Value Reference Range Interpretation Comments Sodium Level (test code = 141 mmol/L 136-145 Sodium Level) Potassium Level (test code 4.0 mmol/L 3.5-5.1 = Potassium Level) Chloride Level (test code 109 mmol/L 98-107 H = Chloride Level) CO2 (test code = CO2) 25 mmol/L 21-32 Anion Gap (test code = 7 mmol/L 7-16 Anion Gap) BUN (test code = BUN) 22 mg/dL 7-18 H Creatinine Level (test 1.4 mg/dL 0.7-1.3 H code = Creatinine Level) Glucose Level (test code = 160 mg/dL 74-106 H Glucose Level) Calcium Level (test code = 8.2 mg/dL 8.5-10.1 L Calcium Level) eGFR AA (test code = eGFR >60 mL/min/1.73 m2 N AA) eGFR Non-AA (test code = 52 mL/min/1.73 m2 N eGFR Non-AA) Complete Blood Count with [id number] 13:02:00 Test Item Value Reference Range Interpretation Comments WBC (test code = WBC) 8.7 x10 4.8-10.8 RBC (test code = RBC) 4.14 x10 4.60-6.20 L Hgb (test code = Hgb) 13.0 g/dL 14.0-18.0 L Hct (test code = Hct) 37.4 % 38.0-52.0 L MCV (test code = MCV) 90.3 fL 80.0-95.0 RDW (test code = RDW) 12.2 % 11.5-14.5 MCHC (test code = MCHC) 34.9 g/dL 31.0-36.0 MCH (test code = MCH) 31.5 pg 26.0-32.0 Platelets (test code = 235 x10 140-440 Platelets) MPV (test code = MPV) 8.1 fL 7.5-11.2 Slide Review (test code Auto N Resu lt created by = Slide Review) GL_SET_SLIDE _REVIEW_A UTO Automated [id number] 13:02:00 Test Item Value Reference Range Interpretation Comments Neutro Auto (test code = Neutro Auto) 62.1 % N Lymph Auto (test code = Lymph Auto) 27.2 % N Bollinger Auto (test code = Bollinger Auto) 9.7 % N Eos, Auto (test code = Eos, Auto) 0.5 % N Basophil Auto (test code = Basophil 0.5 % N Auto) Neutro Absolute (test code = Neutro 5.4 x10 2.7-7.3 Absolute) Lymph Absolute (test code = Lymph 2.4 x10 0.8-3.5 Absolute) Bollinger Absolute (test code = Bollinger 0.8 x10 0.3-0.9 Absolute) Eos Absolute (test code = Eos 0.0 x10 0.0-0.3 Absolute) Baso Absolute (test code = Baso 0.0 x10 0.0-0.1 Absolute) XR Fluoroscopy Assistance per [id number] 12:28:35Patient: IVÁN VERMA Date/Time07/27/2018 12:03 CDTReason for ExamRENAL CALCULI ReportEXAMINATION: BILATERAL RETROGRADE PYELOGRAM:CLINICAL INFORMATION: Renal calculi with bilateralnephroureteral stent placementCOMPARISON: CT abdomen pelvis without contrast 07/26/2018Fluoroscopic time: 21 secondsContrast: 10 mL Omnipaque 3008 spot filmsFINDINGS:The insulation foreman radiograph shows subcentimeter bilateral calcifications projecting over the bilateral renal shadows. The right and left collecting system or opacified in a retrograde fashion, which are nondistended. Filling defects within the bilateral renal calyces, right greater than left. No mass effect. No evidence of urinary obstruction. Interval placement of bilateral double-J internal nephroureteral catheters.IMPRESSION:1. Bilateral nephrolithiasis, without fluoroscopic evidence of obstruction.2. Faintly successful interval placement of bilateral double-J internal nephroureteral catheters. Final Dictated by: MD Jeremi, Sa merDictated DT/TM: 07/27/2018 12:25 pmSigned by: MD Jeremi, SamerSigned (Electronic Signature): 07/27/2018 12:28 pmComprehensive Metabolic Panel 2018-07-27 01:07:16 Test Item Value Reference Range Interpretation Comments Sodium Level (test code = 142 mmol/L 136-145 Sodium Level) Potassium Level (test code = 5.2 mmol/L 3.5-5.1 H Potassium Level) Chloride Level (test code = 108 mmol/L 98-107 H Chloride Level) CO2 (test code = CO2) 28 mmol/L 21-32 Anion Gap (test code = Anion 6 mmol/L 7-16 L Gap) BUN (test code = BUN) 21 mg/dL 7-18 H Creatinine Level (test code = 1.6 mg/dL 0.7-1.3 H Creatinine Level) Glucose Level (test code = 222 mg/dL 74-106 H Glucose Level) Calcium Level (test code = 9.2 mg/dL 8.5-10.1 Calcium Level) Alk Phos (test code = Alk Phos) 92 IntlUnit/L 45-122 Bilirubin Total (test code = 0.6 mg/dL 0.2-1.0 Bilirubin Total) Albumin Level (test code = 4.2 g/dL 3.4-5.0 Albumin Level) Protein Total (test code = 7.4 g/dL 6.4-8.2 Protein Total) ALT (test code = ALT) 27 IntlUnit/L 12-78 AST (test code = AST) 17 IntlUnit/L 10-34 Comprehensive Metabolic [id number] 01:07:16 Test Item Value Reference Range Interpretation Comments Sodium Level (test code = 142 mmol/L 136-145 Sodium Level) Potassium Level (test code 5.2 mmol/L 3.5-5.1 H = Potassium Level) Chloride Level (test code = 108 mmol/L 98-107 H Chloride Level) CO2 (test code = CO2) 28 mmol/L 21-32 Anion Gap (test code = 6 mmol/L 7-16 L Anion Gap) BUN (test code = BUN) 21 mg/dL 7-18 H Creatinine Level (test code 1.6 mg/dL 0.7-1.3 H = Creatinine Level) Glucose Level (test code = 222 mg/dL 74-106 H Glucose Level) Calcium Level (test code = 9.2 mg/dL 8.5-10.1 Calcium Level) Alk Phos (test code = Alk 92 IntlUnit/L 45-122 Phos) Bilirubin Total (test code 0.6 mg/dL 0.2-1.0 = Bilirubin Total) Albumin Level (test code = 4.2 g/dL 3.4-5.0 Albumin Level) Protein Total (test code = 7.4 g/dL 6.4-8.2 Protein Total) ALT (test code = ALT) 27 IntlUnit/L 12-78 AST (test code = AST) 17 IntlUnit/L 10-34 eGFR AA (test code = eGFR 54 mL/min/1.73 m2 N AA) Comprehensive Metabolic [id number] 01:07:16 Test Item Value Reference Range Interpretation Comments Sodium Level (test code = 142 mmol/L 136-145 Sodium Level) Potassium Level (test code 5.2 mmol/L 3.5-5.1 H = Potassium Level) Chloride Level (test code = 108 mmol/L 98-107 H Chloride Level) CO2 (test code = CO2) 28 mmol/L 21-32 Anion Gap (test code = 6 mmol/L 7-16 L Anion Gap) BUN (test code = BUN) 21 mg/dL 7-18 H Creatinine Level (test code 1.6 mg/dL 0.7-1.3 H = Creatinine Level) Glucose Level (test code = 222 mg/dL 74-106 H Glucose Level) Calcium Level (test code = 9.2 mg/dL 8.5-10.1 Calcium Level) Alk Phos (test code = Alk 92 IntlUnit/L 45-122 Phos) Bilirubin Total (test code 0.6 mg/dL 0.2-1.0 = Bilirubin Total) Albumin Level (test code = 4.2 g/dL 3.4-5.0 Albumin Level) Protein Total (test code = 7.4 g/dL 6.4-8.2 Protein Total) ALT (test code = ALT) 27 IntlUnit/L 12-78 AST (test code = AST) 17 IntlUnit/L 10-34 eGFR AA (test code = eGFR 54 mL/min/1.73 m2 N AA) eGFR Non-AA (test code = 44 mL/min/1.73 m2 N eGFR Non-AA) Complete Blood Count with [id number] 00:52:37 Test Item Value Reference Range Interpretation Comments WBC (test code = WBC) 10.3 x10 4.8-10.8 RBC (test code = RBC) 4.57 x10 4.60-6.20 L Hgb (test code = Hgb) 14.2 g/dL 14.0-18.0 MCV (test code = MCV) 89.6 fL 80.0-95.0 Hct (test code = Hct) 40.9 % 38.0-52.0 MCHC (test code = MCHC) 34.8 g/dL 31.0-36.0 RDW (test code = RDW) 12.2 % 11.5-14.5 MCH (test code = MCH) 31.2 pg 26.0-32.0 Platelets (test code = 228 x10 140-440 Platelets) MPV (test code = MPV) 8.1 fL 7.5-11.2 Slide Review (test code Auto N Resu lt created by = Slide Review) GL_SET_SLIDE _REVIEW_A UTO Automated [id number] 00:52:37 Test Item Value Reference Range Interpretation Comments Neutro Auto (test code = Neutro Auto) 80.9 % N Lymph Auto (test code = Lymph Auto) 11.4 % N Bollinger Auto (test code = Bollinger Auto) 7.1 % N Eos, Auto (test code = Eos, Auto) 0.2 % N Basophil Auto (test code = Basophil 0.4 % N Auto) Neutro Absolute (test code = Neutro 8.3 x10 2.7-7.3 H Absolute) Lymph Absolute (test code = Lymph 1.2 x10 0.8-3.5 Absolute) Bollinger Absolute (test code = Bollinger 0.7 x10 0.3-0.9 Absolute) Eos Absolute (test code = Eos 0.0 x10 0.0-0.3 Absolute) Baso Absolute (test code = Baso 0.0 x10 0.0-0.1 Absolute) Urinalysis with Culture, if [id number] 00:11:31 Test Item Value Reference Range Interpretation Comments UA Color (test code = UA [place] Yellow A Color) UA Appear (test code = Cloudy Clear A UA Appear) UA pH (test code = UA 5.0 pH) UA Spec Grav (test code 1.021 SGU 1.005-1.030 = UA Spec Grav) UA Glucose (test code = 3+ Negative A UA Glucose) UA Bili (test code = UA Negative Negative Bili) UA Ketones (test code = Trace Negative A UA Ketones) UA Blood (test code = UA 3+ Negative A Blood) UA Protein (test code = 1+ Negative A UA Protein) UA Urobilinogen (test 0.2 EU/dL >0.2 code = UA Urobilinogen) UA Nitrite (test code = Negative Negative UA Nitrite) UA Leuk Est (test code = 1+ Negative A UA Leuk Est) UA Micro Ind? (test code Indicated Not Indicated A Re sult created by = UA Micro Ind?) rule GL_SET_UA_MICRO _IND Urinalysis [id number] 00:11:31 Test Item Value Reference Range Interpretation Comments UA WBC (test code = UA WBC) 11-20 /HPF 0-5 A UA RBC (test code = UA RBC) >100 /HPF 0-4 A UA Bacteria (test code = UA Negative /HPF Negative Bacteria) UA Squam Epithelial (test code 0-20 /LPF 0-20 = UA Squam Epithelial) UA Hyal Cast (test code = UA 1-6 /LPF 1-6 Hyal Cast) CT Abdomen and Pelvis w/o [id number] 23:56:10Patient: IVÁN VERMA Date/Time07/26/2018 23:41 CDTReason for ExamFlank painRepo rtCT of the abdomen and pelvis without IV or oral contrast.Technique: Multidetector helical scanningof the abdomen and pelvis was performed without IV or oral contrast. The lack of contrast limits evaluation of the solid organs, vasculature and GI tract. Coronal and sagittal reformations were obtained .Indication: Flank painComparison: 07/16/2018Ordering clinician: Dee Merchantiscussion:There is stable mild to moderate left-sided hydroureter and hydronephrosis. Inflammatory changes around the left kidney have progressed. Currently no stone is identified in the left ureter. This may represent residual dilation of the collecting system from recently passed stones.There is now a 7 mm calcified stonein the proximal right ureter at the L2 level resulting in mild right hydronephrosis.There are multiple nonobstructing stones in both kidneys.The lung bases are clear.The noncontrast appearance of the liver, gallbladder, adrenal glands, spleen, pancreas and stomach are normal. There is a small hiatal hernia.There is no evidence of active colonic or small bowel inflammation or obstruction. The appendixis normal.The pelvic organs are normal.There are no acute or suspicious osseous abnormalities.Impression:1. There is stable mild to moderate left hydroureter and hydronephrosis, inflammatory changes around the left kidney have progressed. No definite stone is identified in the left ureter currently.2.There is now a 7 mm calcified stone in the proximal right ureter at the L2 level resulting in mild right hydronephrosis.3. There are multiple nonobstructing stones in both kidneys.RL: [id number]: [id number] reportCT scan was performed according to the ALARA (as low as reasonably achievable) principal.Exam Date/Time07/26/2018 23:41 CDTReport Final Dictated by: MD YANCI, MALLORY Crooks DT/TM: 07/27/2018 0:02 amSigned by: MD PINEDA MICHAEL JOSEPHSigned (Electronic Signature): 07/26/2018 11:56 pmBasi Metabolic [id number] 16:10:24 Test Item Value Reference Range Interpretation Comments Sodium Level (test code = Sodium 137 mmol/L 136-145 Level) Potassium Level (test code = 4.1 mmol/L 3.5-5.1 Potassium Level) Chloride Level (test code = 105 mmol/L 98-107 Chloride Level) CO2 (test code = CO2) 25 mmol/L 21-32 Anion Gap (test code = Anion Gap) 7 mmol/L 7-16 BUN (test code = BUN) 22 mg/dL 7-18 H Creatinine Level (test code = 1.1 mg/dL 0.7-1.3 Creatinine Level) Glucose Level (test code = Glucose 172 mg/dL 74-106 H Level) Calcium Level (test code = Calcium 8.9 mg/dL 8.5-10.1 Level) Basic Metabolic [id number] 16:10:24 Test Item Value Reference Range Interpretation Comments Sodium Level (test code = 137 mmol/L 136-145 Sodium Level) Potassium Level (test code 4.1 mmol/L 3.5-5.1 = Potassium Level) Chloride Level (test code 105 mmol/L 98-107 = Chloride Level) CO2 (test code = CO2) 25 mmol/L 21-32 Anion Gap (test code = 7 mmol/L 7-16 Anion Gap) BUN (test code = BUN) 22 mg/dL 7-18 H Creatinine Level (test 1.1 mg/dL 0.7-1.3 code = Creatinine Level) Glucose Level (test code = 172 mg/dL 74-106 H Glucose Level) Calcium Level (test code = 8.9 mg/dL 8.5-10.1 Calcium Level) eGFR AA (test code = eGFR >60 mL/min/1.73 m2 N AA) eGFR Non-AA (test code = >60 mL/min/1.73 m2 N eGFR Non-AA) Basic Metabolic [id number] 16:10:24 Test Item Value Reference Range Interpretation Comments Sodium Level (test code = 137 mmol/L 136-145 Sodium Level) Potassium Level (test code 4.1 mmol/L 3.5-5.1 = Potassium Level) Chloride Level (test code 105 mmol/L 98-107 = Chloride Level) CO2 (test code = CO2) 25 mmol/L 21-32 Anion Gap (test code = 7 mmol/L 7-16 Anion Gap) BUN (test code = BUN) 22 mg/dL 7-18 H Creatinine Level (test 1.1 mg/dL 0.7-1.3 code = Creatinine Level) Glucose Level (test code = 172 mg/dL 74-106 H Glucose Level) Calcium Level (test code = 8.9 mg/dL 8.5-10.1 Calcium Level) eGFR AA (test code = eGFR >60 mL/min/1.73 m2 N AA) eGFR Non-AA (test code = >60 mL/min/1.73 m2 N eGFR Non-AA) Urinalysis [id number] 21:30:24 Test Item Value Reference Range Interpretation Comments UA WBC (test code = UA WBC) 0-5 /HPF 0-5 UA RBC (test code = UA RBC) >100 /HPF 0-4 A UA Bacteria (test code = UA Negative /HPF Negative Bacteria) UA Squam Epithelial (test code 21-73 /LPF 0-20 A = UA Squam Epithelial) Urinalysis with Culture, if [id number] 21:30:24 Test Item Value Reference Range Interpretation Comments UA Color (test code = UA Yellow Yellow Color) UA Appear (test code = Clear Clear UA Appear) UA pH (test code = UA 5.5 pH) UA Spec Grav (test code >1.030 SGU 1.005-1.030 H = UA Spec Grav) UA Glucose (test code = 1+ Negative A UA Glucose) UA Bili (test code = UA Negative Negative Bili) UA Ketones (test code = Trace Negative A UA Ketones) UA Blood (test code = UA 4+ Negative A Blood) UA Protein (test code = Trace Negative A UA Protein) UA Urobilinogen (test 0.2 EU/dL >0.2 code = UA Urobilinogen) UA Nitrite (test code = Negative Negative UA Nitrite) UA Leuk Est (test code = Negative Negative UA Leuk Est) UA Micro Ind? (test code Indicated Not Indicated A Re sult created by = UA Micro Ind?) rule GL_SET_UA_MICRO _IND Basic Metabolic [id number] 21:21:13 Test Item Value Reference Range Interpretation Comments Sodium Level (test code = Sodium 141 mmol/L 136-145 Level) Potassium Level (test code = 4.3 mmol/L 3.5-5.1 Potassium Level) Chloride Level (test code = 103 mmol/L 98-107 Chloride Level) CO2 (test code = CO2) 30 mmol/L 21-32 Anion Gap (test code = Anion Gap) 8 mmol/L 7-16 BUN (test code = BUN) 21 mg/dL 7-18 H Creatinine Level (test code = 1.2 mg/dL 0.7-1.3 Creatinine Level) Glucose Level (test code = Glucose 252 mg/dL 74-106 H Level) Calcium Level (test code = Calcium 9.4 mg/dL 8.5-10.1 Level) Basic Metabolic [id number] 21:21:13 Test Item Value Reference Range Interpretation Comments Sodium Level (test code = 141 mmol/L 136-145 Sodium Level) Potassium Level (test code 4.3 mmol/L 3.5-5.1 = Potassium Level) Chloride Level (test code 103 mmol/L 98-107 = Chloride Level) CO2 (test code = CO2) 30 mmol/L 21-32 Anion Gap (test code = 8 mmol/L 7-16 Anion Gap) BUN (test code = BUN) 21 mg/dL 7-18 H Creatinine Level (test 1.2 mg/dL 0.7-1.3 code = Creatinine Level) Glucose Level (test code = 252 mg/dL 74-106 H Glucose Level) Calcium Level (test code = 9.4 mg/dL 8.5-10.1 Calcium Level) eGFR AA (test code = eGFR >60 mL/min/1.73 m2 N AA) Basic Metabolic [id number] 21:21:13 Test Item Value Reference Range Interpretation Comments Sodium Level (test code = 141 mmol/L 136-145 Sodium Level) Potassium Level (test code 4.3 mmol/L 3.5-5.1 = Potassium Level) Chloride Level (test code 103 mmol/L 98-107 = Chloride Level) CO2 (test code = CO2) 30 mmol/L 21-32 Anion Gap (test code = 8 mmol/L 7-16 Anion Gap) BUN (test code = BUN) 21 mg/dL 7-18 H Creatinine Level (test 1.2 mg/dL 0.7-1.3 code = Creatinine Level) Glucose Level (test code = 252 mg/dL 74-106 H Glucose Level) Calcium Level (test code = 9.4 mg/dL 8.5-10.1 Calcium Level) eGFR AA (test code = eGFR >60 mL/min/1.73 m2 N AA) eGFR Non-AA (test code = >60 mL/min/1.73 m2 N eGFR Non-AA) CT Abdomen and Pelvis w/o [id number] 21:16:35Patient: IVÁN GALAVIZ Date/Time07/16/2018 21:11 CDTReason for ExamFlank painRepor tCLINICAL HISTORY:Flank painCOMPARISON:NoneTECHNIQUE: CT scan of the abdomen and pelvis performed. Contiguous axial CT images were obtained without administration of intravenous contrast material.Studywas performed using ALARA principle.FINDINGS:Mild fatty liver.Gallbladder, pancreas, spleen, adrenalglands unremarkable.Right renal stones, up to 12 mm. Left renal stones, up to 12 mm. There is left hydronephrosis and hydroureter with punctate calcifications left UVJ, 1 to 2 mm.Small hiatal hernia. No mechanical bowel obstruction, abscess, or free air.There are scattered small lymph nodes, nonspecific and may be reactive. None individually meet size criteria for pathologic enlargement.There are dege nerative changes of the dorsal spine and visualized bones.IMPRESSION:Bilateral renal stones.Mild to moderate left hydronephrosis and hydroureter with punctate calcifications left UVJ 1 to 2 mm. Final Dictated by: Contributor_system, [facility] RIBE_CTZDictated DT/TM: 07/16/2018 9:19 pmSigned by: Talat Velez (Electronic Signature): 07/16/2018 9:16 pmComplete Blood Count with Differential 2018-07-16 21:05:16 Test Item Value Reference Range Interpretation Comments WBC (test code = WBC) 7.8 x10 4.8-10.8 RBC (test code = RBC) 4.83 x10 4.60-6.20 Hgb (test code = Hgb) 15.2 g/dL 14.0-18.0 MCV (test code = MCV) 89.5 fL 80.0-95.0 Hct (test code = Hct) 43.2 % 38.0-52.0 MCHC (test code = MCHC) 35.2 g/dL 31.0-36.0 RDW (test code = RDW) 11.9 % 11.5-14.5 MCH (test code = MCH) 31.5 pg 26.0-32.0 Platelets (test code = 222 x10 140-440 Platelets) MPV (test code = MPV) 8.4 fL 7.5-11.2 Slide Review (test code Auto N Resu lt created by = Slide Review) GL_SET_SLIDE _REVIEW_A UTO Automated [id number] 21:05:16 Test Item Value Reference Range Interpretation Comments Neutro Auto (test code = Neutro Auto) 75.1 % N Lymph Auto (test code = Lymph Auto) 17.3 % N Bollinger Auto (test code = Bollinger Auto) 5.4 % N Eos, Auto (test code = Eos, Auto) 1.2 % N Basophil Auto (test code = Basophil 1.0 % N Auto) Neutro Absolute (test code = Neutro 5.9 x10 2.7-7.3 Absolute) Lymph Absolute (test code = Lymph 1.3 x10 0.8-3.5 Absolute) Bollinger Absolute (test code = Bollinger 0.4 x10 0.3-0.9 Absolute) Eos Absolute (test code = Eos 0.1 x10 0.0-0.3 Absolute) Baso Absolute (test code = Baso 0.1 x10 0.0-0.1 Absolute) POC [id number] 20:47:39 Test Item Value Reference Range Interpretation Comments Glucose POC (test 244 mg/dL 74-106 H POC Glucos e used on code = Glucose POC) critical ly ill patients is considered " off-label use" and has no t been cleared or appr cong by the FDA. Altern ative testing methods should be considered i f the patient is crit ically ill. XR [facility] [place] [id number] [facility]. [place] [phone] Patient Name: Iván Verma Medical Record#: [id number] Address: [address] City/State/Zip: [place] [address]: Pilar Plata MD Insurance: [facility] PPO Blue [place] /Age/Sex: 1960/60/M Self Pay Admit/Reg Date: 09/22/[address]: Pilar Plata MD Location: [facility]/ PCP: Padilla Cook MD Date of Service: 09/22/20 Order (s): XR KUB CPT Code: 32835 Report Number: [id number] Reason for Exam: N20.0 SUPINE ABDOMEN/KUB ONE VIEW: CLINICAL HISTORY: Nephrolithiasis. COMPARISON: Previous CT abdomen and pelvis August 25, 2018. There are bilateral nephrolithiasis left greater than the right. Largest calculus within the left kidney is seen within the interpolar region measuring 1.1 cm x 6 mm. Single calculus is seenwithin the right kidney measuring 6 mm x 2 mm. Calcific density is seen within superior aspect the left hemipelvis measuring 3 mm x 1 mm. A left ureteral calculus cannot be excluded. The bowel gas pattern is normal. Partially visualized lung bases are clear. 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 IMPRESSION: 1. Bilateral nephrolithiasis. 2. 3 mm x 1 mm calcific density within thesuperior aspect of the left hemipelvis. A left ureteral calculus cannot be excluded. Dictated By: Juan David Luna MD [id number] Signed By: Juan David Luna MD 09/22/20 1711 TD/TT: 09/22/201707 Tech: WVB02 cc: BAYRON; [id number]* G Yunier Plata MD; Padilla Cook MD
[2022-07-16] MEDS ORDERED: ONDANSETRON 4 MG (ODT) TAB ONE (20:17)
[2022-07-16] MEDS ORDERED: KETOROLAC 30 MG/ML INJ ONE (20:17)
[2022-07-16] MEDS ORDERED: predniSONE 20 MG TAB ONE (20:17)
[2022-07-16] MEDS ORDERED: MORPHINE 4 MG/ML SYR ONE (20:17)
[2022-07-16 20:49] LABS: Specific Gravity 1.016 (1.005-1.030); Urine Bacteria 20-50 /HPF (<20); Urine Bilirubin NEGATIVE (Negative); Urine Blood Negative (Negative); Urine Clarity Clear (Clear); Urine Color Yellow (Yellow); Urine Crystals Unidentified Few /HPF (None Seen); Urine Glucose NEGATIVE (Negative); Urine Mucus Slight /HPF (None Seen); Urine Protein NEGATIVE (Negative); Urine Urobilinogen Normal (Normal); Urine WBC Clump Rare /HPF (None Seen)
--- NOTE | 2022-07-16 20:57 | EDPHYS ---
Physician Documentation [facility] Name: Iván Betancourt Age: 62 yrs Sex: Male : 1960 Arrival Date: 07/16/2022 Time: 19:28 Bed 10 Private MD: ED Physician Guille Bauman HPI: 07/16 21:00 This 62 yrs old Male presents to ER via Unassigned with complaints of Low Back Pain, kb Leg Pain. 21:00 The patient presents with pain that is acute. The symptoms are located in the low back. kb The pain radiates to the left leg. The problem was sustained without known cause. Onset: The symptoms/episode began/occurred 2 day(s) ago. Modifying factors: The patient symptoms are alleviated by nothing, the patient symptoms are aggravated by any movement. Associated signs and symptoms: The patient has no apparent associated signs or symptoms. Severity of symptoms: At their worst the symptoms were moderate, severe, in the emergency department the symptoms are unchanged. The patient has experienced similar episodes in the past. The patient has not recently seen a physician. Pt reports left sciatica that started 2 days ago. States he has had this before and knows it is due to the sciatic nerve. Denies any urinary symptoms. States "I have had kidney stones and I know that this is not from my kidney." . ROS: 20:59 Constitutional: Negative for fever, chills, and weight loss. kb 20:59 Back: Positive for pain at rest, pain with movement, radiated pain, of the left low back. 20:59 All other systems are negative. Exam: 20:59 Constitutional: This is a well developed, well nourished patient who is awake, alert, kb and in no acute distress. Head/Face: Normocephalic, atraumatic. ENT: Moist Mucous membranes Cardiovascular: Regular rate and rhythm with a normal S1 and S2. No gallops, murmurs, or rubs. No pulse deficits. Respiratory: Respirations even and unlabored. No increased work of breathing. Talking in full sentences Abdomen/GI: Soft, non-tender. No distention Skin: Warm, dry with normal turgor. Normal color. MS/ Extremity: Pulses equal, no cyanosis. Neurovascular intact. Full, normal range of motion. Neuro: Awake and alert, GCS 15, oriented to person, place, time, and situation. Moves all extremities. Normal gait. 20:59 Back: pain, that is moderate, of the left low back, ROM is painful, normal spinal alignment noted, CVA tenderness, is absent, vertebral tenderness, is not appreciated. Vital Signs: 20:15 Pulse 85; Resp 18; Temp 97(TE); Pulse Ox 99% on R/A; Pain 10/10; kl 20:15 Pain Scale: Adult kl MDM: 19:39 Patient medically screened. kb 20:57 Data reviewed: vital signs, nurses notes. kb 21:00 Differential diagnosis: arthritis, strain, sciatica, Herniated disc UTI. Counseling: I kb had a detailed discussion with the patient and/or guardian regarding: the historical points, exam findings, and any diagnostic results supporting the discharge/admit diagnosis, lab results, the need for outpatient follow up, a family practitioner, to return to the emergency department if symptoms worsen or persist or if there are any questions or concerns that arise at home. 07/16 19:44 Order name: Urinalysis w/ reflexes; Complete Time: 20:56 07/16 20:58 Order name: Urine Culture EDMS Administered Medications: 20:30 Drug: Ketorolac IM 30 mg Route: IM; Site: left ventrogluteal; kl 21:48 Follow up: Response: No adverse reaction; Marked relief of symptoms kl 20:30 Drug: Ondansetron PO 4 mg Route: PO; kl 21:48 Follow up: Response: No adverse reaction; Marked relief of symptoms kl 20:30 Drug: predniSONE PO 40 mg Route: PO; kl 21:47 Follow up: Response: No adverse reaction; Marked relief of symptoms kl 20:59 Drug: morphine IM 4 mg Route: IM; Site: left ventrogluteal; kl 21:49 Follow up: Response: No adverse reaction; Marked relief of symptoms kl Disposition Summary: 07/16/22 20:57 Discharge Ordered Location: Home Condition: Stable Diagnosis - UTI/ Urinary tract infection, site not specified kb - Sciatica, left side kb Followup: kb - With: Emergency Department - When: As needed - Reason: Worsening of condition Followup: kb - With: Private Physician - When: 2 - 3 days - Reason: Recheck today's complaints, Continuance of care, Re-evaluation by your physician Discharge Instructions: - Discharge Summary Sheet kb - Urinary Tract Infection, Adult, [id number] kb - Sciatica, [id number] kb Forms: - Medication Reconciliation Form kb - Thank You Letter kb - Antibiotic Education kb - Prescription Opioid Use kb Prescriptions: - Augmentin 875-125 mg Oral Tablet - take 1 tablet by ORAL route every 12 hours for 10 days; 20 tablet; Refills: 0, kb Product Selection Permitted - Neurontin 300 mg Oral Capsule - take 1 capsule by ORAL route At bedtime; 20 capsule; Refills: 0, Product kb Selection Permitted - Prednisone 20 mg Oral Tablet - take 1 tablet by ORAL route once daily for 5 days; 5 tablet; Refills: 0, kb Product Selection Permitted - Cyclobenzaprine 10 mg Oral Tablet - take 1 tablet by ORAL route every 8 hours As needed; 21 tablet; Refills: 0, kb Product Selection Permitted Signatures: Dispatcher [employer] Kizzy Stewart, TOBACCO STRIPPER-C TOBACCO STRIPPER-Marimar Guzman, RN RN kl
--- NOTE | 2022-07-16 20:57 | ER ---
Nurse's Notes [facility] Name: Iván Betancourt Age: 62 yrs Sex: Male : 1960 Arrival Date: 07/16/2022 Time: 19:28 Bed 10 Private MD: Diagnosis: UTI/ Urinary tract infection, site not specified;Sciatica, left side Presentation: 07/16 20:15 Chief complaint: Patient states: lower back pain and left leg pain began today. Coronavirus screen: Vaccine status: Patient reports being unvaccinated. Ebola Screen: Patient negative for fever greater than or equal to 101.5 degrees Fahrenheit, and additional compatible Ebola Virus Disease symptoms. Initial Sepsis Screen: Does the patient meet any 2 criteria? No. Patient's initial sepsis screen is negative. Does the patient have a suspected source of infection? No. Patient's initial sepsis screen is negative. Risk Assessment: Do you want to hurt yourself or someone else? Patient reports no desire to harm self or others. 20:15 Method Of Arrival: Wheelchair 20:15 Acuity: KAYE 4 Triage Assessment: 20:15 General: Appears uncomfortable, Behavior is cooperative. Pain: Complains of pain in kl left leg and left low back Pain currently is 8 out of 10 on a pain scale. at worst was 10 out of 10 on a pain scale. Quality of pain is described as aching, radiating, sharp, shooting. EENT: No deficits noted. Neuro: No deficits noted. Cardiovascular: No deficits noted. Respiratory: No deficits noted. GI: No deficits noted. No signs and/or symptoms were reported involving the gastrointestinal system. : No deficits noted. No signs and/or symptoms were reported regarding the genitourinary system. Derm: No deficits noted. No signs and/or symptoms reported regarding the dermatologic system. Musculoskeletal: Reports pain in left leg and left low back. Screenin:54 [facility] ED Fall Risk Assessment (Adult) History of falling in the last 3 months, kl including since admission. Abuse screen: Denies threats or abuse. Nutritional screening: No deficits noted. Tuberculosis screening: No symptoms or risk factors identified. Assessment: 21:54 Reassessment: Patient appears in no apparent distress at this time. Patient and/or kl family updated on plan of care and expected duration. Pain level reassessed. Patient denies pain at this time. Patient states symptoms have improved. Vital Signs: 20:15 Pulse 85; Resp 18; Temp 97(TE); Pulse Ox 99% on R/A; Pain 10/10; kl 20:15 Pain Scale: Adult kl ED Course: 19:30 Patient arrived in ED. ag3 19:34 Kizzy Segura FNP-C is [facility]. kb 19:34 Guille Bauman MD is Attending Physician. kb 20:20 Urinalysis w/ reflexes Sent. mb4 20:21 Urine collected: clean catch specimen, clear. mb4 21:53 Triage completed. kl 21:55 Patient has correct armband on for positive identification. kl Administered Medications: 20:30 Drug: Ketorolac IM 30 mg Route: IM; Site: left ventrogluteal; kl 21:48 Follow up: Response: No adverse reaction; Marked relief of symptoms kl 20:30 Drug: Ondansetron PO 4 mg Route: PO; kl 21:48 Follow up: Response: No adverse reaction; Marked relief of symptoms kl 20:30 Drug: predniSONE PO 40 mg Route: PO; kl 21:47 Follow up: Response: No adverse reaction; Marked relief of symptoms kl 20:59 Drug: morphine IM 4 mg Route: IM; Site: left ventrogluteal; kl 21:49 Follow up: Response: No adverse reaction; Marked relief of symptoms kl Outcome: 20:57 Discharge ordered by . kb 21:55 Discharged to home via wheelchair, with family. kl 21:55 Condition: improved 21:55 Discharge instructions given to patient, family, Instructed on discharge instructions, follow up and referral plans. medication usage, Demonstrated understanding of instructions, follow-up care, medications, Prescriptions given X 4. 21:55 Patient left the ED. Signatures: Kizzy Segura FNP-C FNP-Ckb Lewis, Kimberly, RN RN Mariel Anderson mb4 Nicolle Altamirano ag3
[2022-07-16 22:34] VITALS: TEMP 97; O2SAT 99
== END 2022-07-16 21:55 | disposition home or self-care (01) ==
LOC: ER 19:28
DX: N39.0 Urinary tract infection, site not specified (principal); M54.32 Sciatica, left side
CPT/HCPCS: 87088; 81001; 87086; 87077; 87186; 96372; 99284; J7512; Q0162

== ENCOUNTER 2022-10-13 20:39 | Observation (INO) | payer BC ==
--- OUTSIDE RECORDS SUMMARY | 2022-10-13 20:56 | XMS REPORT | Continuity of Care Document ---
:1960 Author Organization [facility] t Address [address] [place] [address] [place] [id number] Care Team Providers Name Role Phone Padilla Cook Primary Care Physician Unavailable Alfredo Castellanos MD Attending Clinician Pilar Plata Attending Clinician Unavailable ALFREDO CASTELLANOS Attending Clinician Unavailable Doctor Unassigned, [place] Attending Clinician Unavailable Byron DORSEY, Jm Attending Clinician Payers Payer Name Policy Type Policy Number Effective Date Expiration Date S ource Problems This patient has no known problems. Allergies, Adverse Reactions, Alerts Allergy Allergy Status Severity Reaction(s) Onset Inactive Treating Comm ents Source Name Type Date Date Clinician NO KNOWN Drug Active Univers ALLERGIE Class ity of [facility] Social History Social Habit Start Date Stop Date Quantity Comments Source Exposure to Not sure [facility] SARS-CoV-2 (event) Medica l Branch Tobacco use and 2017-06-15 2017-06-15 Never used [facility] exposure 00:00:00 00:00:00 [facility] Sex Ass[birth year] At [birth year] [facility] 00:00:00 00:00:00 [facility] Smoking Status Start Date Stop Date Source Never smoker [facility] Medications Ordered Filled Start Stop Current Ordering Indication Dosage Frequency Signature Comments Components Source Medication Medication Date Date Medication? Clinician (SIG) Name Name metformin 2020-02 Yes [id number] 2250mg Take 3 Univers ER 750 mg 1-22 tablets by ity of 24 hr 00:00: mouth [place] tablet 00 daily with Medical breakfast. Branch metformin 2019-02 Yes [id number] 2250mg Take 3 Univers ER 750 mg 0-30 tablets by ity of 24 hr 00:00: mouth [place] tablet 00 daily with Medical breakfast. Branch metformin 2019-02 Yes [id number] 2250mg Take 3 Univers ER 750 mg 0-30 tablets by ity of 24 hr 00:00: mouth [place] tablet 00 daily with Medical breakfast. Branch metformin 2019-02 Yes [id number] 2250mg Take 3 Univers ER 750 mg 0-30 tablets by ity of 24 hr 00:00: mouth [place] tablet 00 daily with Medical breakfast. Branch metformin 2019-02- No [id number] 2250mg Take 3 Univers ER 750 mg 0-30 11-22 tablets by ity of 24 hr 00:00: 00:00 mouth [place] tablet 00 :00 daily with Medical breakfast. Branch CONTOUR 2020-0 Yes Use as Univers NEXT EZ 4-14 directed ity of METER Kit 00:00: to test [place] 00 blood Medical glucose Branch once daily. Dx E11.9BIN 71505,PCN3 F,groupNTX 70,idNRX79 [id number] MICROLET 2020-0 Yes Use as Univers LANCET Misc 4-14 directed ity of 00:00: to test [place] 00 blood Medical glucose Branch once daily. Dx E 11.9 CONTOUR 2020-0 Yes Use as Univers NEXT TEST 4-14 directed ity of STRIPS 00:00: to test [facility] 00 blood Medical glucose Branch once daily. Dx E 11.9 CONTOUR 2020-0 Yes Use as Univers NEXT EZ 4-14 directed ity of METER Kit 00:00: to test [place] 00 blood Medical glucose Branch once daily. Dx E11.9BIN 74676,PCN3 F,groupNTX 70,idNRX79 [id number] MICROLET 2020-0 Yes Use as Univers LANCET Misc 4-14 directed ity of 00:00: to test [place] 00 blood Medical glucose Branch once daily. Dx E 11.9 CONTOUR 2020-0 Yes Use as Univers NEXT TEST 4-14 directed ity of STRIPS 00:00: to test [facility] 00 blood Medical glucose Branch once daily. Dx E 11.9 CONTOUR 2020-0 Yes Use as Univers NEXT EZ 4-14 directed ity of METER Kit 00:00: to test [place] 00 blood Medical glucose Branch once daily. Dx E11.9BIN 36593,PCN3 F,groupNTX 70,idNRX79 [id number] MICROLET 2020-0 Yes Use as Univers LANCET [...] Medical glucose Branch once daily. Dx E11.9BIN 12008,PCN3 F,groupNTX 70,idNRX79 [id number] MICROLET 2020-0 Yes Use as Univers LANCET [...] Medical glucose Branch once daily. Dx E11.9BIN 82892,PCN3 F,groupNTX 70,idNRX79 [id number] MICROLET 2020-0 Yes Use as Univers LANCET [...] Medical glucose Branch once daily. Dx E11.9BIN 46035,PCN3 F,groupNTX 70,idNRX79 [id number] MICROLET 2020-0 Yes Use as Univers LANCET [...] Medical glucose Branch once daily. Dx E11.9BIN 81587,PCN3 F,groupNTX 70,idNRX79 [id number] MICROLET 2020-0 Yes Use as Univers LANCET [...] Medical glucose Branch once daily. Dx E11.9BIN 69103,PCN3 F,groupNTX 70,idNRX79 [id number] MICROLET 2020-0 Yes Use as Univers LANCET [...] Medical glucose Branch once daily. Dx E11.9BIN 67951,PCN3 F,groupNTX 70,idNRX79 [id number] MICROLET 2020-0 Yes Use as Univers LANCET Misc 4-14 directed ity of 00:00: to test [place] 00 blood Medical glucose Branch once daily. Dx E 11.9 CONTOUR 2020-0 Yes Use as Univers NEXT TEST 4-14 directed ity of STRIPS 00:00: to test [place] strip 00 blood Medical glucose Branch once daily. Dx E 11.9 metformin 2020-0 Yes [id number] 2250mg Take 3 Univers ER 750 mg 4-10 tablets by ity of 24 hr 00:00: mouth [place] tablet 00 daily with Medical breakfast. Branch metformin 2020-0 Yes [id number] 2250mg Take 3 Univers ER 750 mg 4-10 tablets by ity of 24 hr 00:00: mouth [place] tablet 00 daily with Medical breakfast. Branch metformin 2020-0 Yes [id number] 2250mg Take 3 Univers ER 750 mg 4-10 tablets by ity of 24 hr 00:00: mouth [place] tablet 00 daily with Medical breakfast. Branch metformin 2020-0 Yes [id number] 2250mg Take 3 Univers ER 750 mg 4-10 tablets by ity of 24 hr 00:00: mouth [place] tablet 00 daily with Medical breakfast. Branch metformin 2020-0 Yes [id number] 2250mg Take 3 Univers ER 750 mg 4-10 tablets by ity of 24 hr 00:00: mouth [place] tablet 00 daily with Medical breakfast. Branch metformin 2020-0 Yes [id number] 2250mg Take 3 Univers ER 750 mg 4-10 tablets by ity of 24 hr 00:00: mouth [place] tablet 00 daily with Medical breakfast. Branch metformin 2020-0 2020- No [id number] 2250mg Take 3 Univers ER 750 mg 4-10 10-30 tablets by ity of 24 hr 00:00: 00:00 mouth [place] tablet 00 :00 daily with Medical breakfast. Branch metformin 2020-0 2020- No [id number] 2250mg Take 3 Univers ER 750 mg [...] [facility] test strips. METFORMIN 2020-0 Yes [id number] 2250mg TAKE 3 Univers ER 750 mg 4-07 TABLETS BY ity of 24 hr 00:00: MOUTH [place] tablet 00 DAILY WITH Medical BREAKFAST Branch METFORMIN 2020-0 Yes [id number] 2250mg TAKE 3 Univers ER 750 mg 4-07 TABLETS BY ity of 24 hr 00:00: MOUTH [place] tablet 00 DAILY WITH Medical BREAKFAST Branch METFORMIN 2020-0 2020- No [id number] 2250mg TAKE 3 Univers ER 750 mg 4-07 04-10 TABLETS BY ity of 24 hr 00:00: 00:00 MOUTH [place] tablet 00 :00 DAILY WITH Medical BREAKFAST Branch METFORMIN 2019-0 Yes [id number] 2250mg TAKE 3 Univers ER 750 mg 9-08 TABLETS BY ity of 24 hr 00:00: MOUTH [place] tablet 00 DAILY WITH Medical BREAKFAST Branch METFORMIN 2019-0 2020- No [id number] 2250mg TAKE 3 Univers ER 750 mg 9-08 04-07 TABLETS BY ity of 24 hr 00:00: 00:00 MOUTH [place] tablet 00 :00 DAILY WITH Medical BREAKFAST Branch METFORMIN 2019-0 2019- No [id number] 2250mg TAKE 3 Univers ER 750 mg [...] mg 3-06 ity of per tablet 00:00: [place] [address] Medical Branch VIMOVO 2018-0 Yes Univers 500-20 mg 3-06 ity of per tablet 00:00: [place] [address] Medical Branch VIMOVO 2018-0 Yes Univers 500-20 mg 3-06 ity of per tablet 00:00: [place] [address] Medical Branch VIMOVO 2018-0 Yes Univers 500-20 mg 3-06 ity of per tablet 00:00: [place] [address] Medical Branch VIMOVO 2018-0 Yes Univers 500-20 mg 3-06 ity of per tablet 00:00: [place] [address] Medical Branch VIMOVO 2018-0 Yes Univers 500-20 mg 3-06 ity of per tablet 00:00: [place] [address] Medical Branch VIMOVO 2018-0 Yes Univers 500-20 mg 3-06 ity of per tablet 00:00: [place] [address] Medical Branch VIMOVO 2018-0 Yes Univers 500-20 mg 3-06 ity of per tablet 00:00: [place] [address] Medical Branch VIMOVO 2018-0 Yes Univers 500-20 mg 3-06 ity of per tablet 00:00: [place] [address] Medical Branch VIMOVO 2018-0 Yes Univers 500-20 mg 3-06 ity of per tablet 00:00: [place] [address] Medical Branch VIMOVO 2018-0 Yes Univers 500-20 mg 3-06 ity of per tablet 00:00: [place] [address] Medical Branch ibuprofen 2018-0 Yes Univers 800 mg 1-22 ity of tablet 00:00: [place] [address] Medical Branch ibuprofen 2018-0 Yes Univers 800 mg 1-22 ity of tablet 00:00: [place] [address] Medical Branch ibuprofen 2018-0 Yes Univers 800 mg 1-22 ity of tablet 00:00: [place] [address] Medical Branch ibuprofen 2018-0 Yes Univers 800 mg 1-22 ity of tablet 00:00: [place] [address] Medical Branch ibuprofen 2018-0 Yes Univers 800 mg 1-22 ity of tablet 00:00: [place] [address] Medical Branch ibuprofen 2018-0 Yes Univers 800 mg 1-22 ity of tablet 00:00: [place] [address] Medical Branch ibuprofen 2018-0 Yes Univers 800 mg 1-22 ity of tablet 00:00: [place] [address] Medical Branch ibuprofen 2018-0 Yes Univers 800 mg 1-22 ity of tablet 00:00: [place] [address] Medical Branch ibuprofen 2018-0 Yes Univers 800 mg 1-22 ity of tablet 00:00: [place] [facility] Branch ibuprofen 2018-0 Yes Univers 800 mg 1-22 ity of tablet 00:00: [place] [facility] Branch ibuprofen 2018-0 Yes Univers 800 mg 1-22 ity of tablet 00:00: [place] [facility] Branch ibuprofen 2018-0 Yes Univers 800 mg 1-22 ity of tablet 00:00: [address] Branch ibuprofen 2018-0 Yes Univers 800 mg 1-22 ity of tablet 00:00: [address] Vital Signs Vital Name Observation Time Observation Value Comments Source Systolic blood 2019-12-14 21:01:00 131 mm[Hg] Univer sity [facility] Diastolic blood 2019-12-14 21:01:00 89 mm[Hg] Unive rsity [facility] Heart rate 2019-12-14 21:01:00 97 /min [facility] Body height 2019-12-14 21:01:00 182.9 cm [facility] Body weight 2019-12-14 21:01:00 133.176 kg [facility] BMI 2019-12-14 21:01:00 39.82 kg/m2 [facility] Procedures Procedure Date / Time Performing Clinician Source Performed LIPID PANEL-Q 2019-12-31 15:37:[address] [facility] [place] [place] COMPREHENSIVE 2019-12-31 15:37:[address] [facility] METABOLIC$PANEL W/EGFR-Q [facility] CONSENT/REFUSAL FOR 2019-12-14 20:41:36 Doctor Unassigned, No [facility] DIAGNOSIS AND TREATMENT [facility] ASSIGNMENT OF BENEFITS 2019-12-14 20:41:19 Doctor Unassigned, No [facility] POCT HEMOGLOBIN A1C TEST 2019-12-14 00:00:00 [facility] Start End Encounter Admission Attending Care Care Encounter Source Date/Time Date/Time Type Type Clinicians Facility Department ID 2021-01-02 2021-01-02 Telephone TAYLA Castellanos [id number] [facility] 00:00:00 00:00:00 Alfredo ISIDRO 350.1.13.10 i alvin [facility] [place] [phone] [address] 2020-09-22 2020-09-22 Outpatient Elective Pilar Plata MCSETXm MCSETXm [id number] MCSETXm 16:34:00 16:34:00 Yunier Yee 2019-12-31 2019-12-31 Orders TALAT Castellanos [id number] Univers 00:00:00 00:00:00 Only Alfredo LEWIS 350.1.13.10 it y of [facility] 4.2.7.2.686 Ben as [phone] [address] 2019-12-14 2019-12-14 [facility] [id number] Univers 15:42:19 16:40:08 Visit Alfredo Isidro 350.1.13.10 [place] [id number] [address] 2019-12-14 2019-12-14 [facility] [id number] Univers 16:00:00 16:00:00 ALFREDO pablo [facility] 2019-12-14 2019-12-14 Orders Doctor GILLILAND [id number] Univers 00:00:00 00:00:00 Only Unassigned, JOSHUA 350.1.13.10 ity of [place] [facility] 4.2.7.2.686 Ben as [phone] [address] 2019-10-17 2019-10-17 [facility] [id number] Univers 00:00:00 00:00:00 Alfredo Isidro 350.1.13.10 [place] [phone] [address] 2019-08-31 2019-08-31 [facility] [id number] Univers 15:30:00 15:30:00 ALFREDO pablo [facility] 2019-07-10 2019-07-10 [facility] [id number] Univers 00:00:00 00:00:00 Alfredo H Bella 350.1.13.10 [place] [phone] [address] 2019-05-29 2019-05-29 Telephone [facility] [id number] Univers 00:00:00 00:00:00 Alfredo Blaine Bella 350.1.13.10 [place] [phone] [address] 2019-05-25 2019-05-25 [facility] [id number] Univers 08:15:34 17:13:18 ne Visit Alfredo Isidro 350.1.13.10 [place] [phone] [address] 2019-05-25 2019-05-25 [facility] [id number] Univers 15:00:00 15:00:00 ALFREDO pablo [facility] 2019-05-23 2019-05-23 Telephone [facility] [id number] Univers 00:00:00 00:00:00 Alfredo Isidro 350.1.13.10 [place] [phone] [address] 2019-05-21 2019-05-21 [facility] [id number] Univers 00:00:00 00:00:00 Jm Isidro 350.1.13.10 [place] [phone] [address] 2018-10-19 2018-10-19 [facility] [id number] Univers 00:00:00 00:00:00 Alfredo Isidro 350.1.13.10 i ty michael Escobar 4.2.7.2.686 Shu Vincentio [phone] Ny dical nal [address] Results Test [...] et al. J. of Clin. Lipidol. 2015;9:129-169. WLQ-WHAQTYJOGED-P (test mg/dL (calc) H Refe rence range: <100 code = 05186-9) Desirable ra nge <100 mg/dL for prima [...] LDL-C. Migel SS et al . JAMIR. 2013;310(02): 1 061-5491 (http://educati on.Yasuu.Quepasa/ faq/FAQ16 4) CHOL/HDLC RATIO-Q (test See_Comment [Au tomated message] The code = 9830-1) system which generated this result tra nsmitted reference range : <5.0 (calc). The ref erence range was not u sed to interpret this result as normal/abnormal . NON-HDL CHOLESTEROL-Q See_Comment H For pa rex with (test code = 61895-9) diabet es plus 1 major ASCVD risk [...] SIM (test code = SIM) PERFORMED BY [facility] [place]; [address] [place] [address]; FEMI LÓPEZ MD Lab Interpretation (test Abnormal code = 54849-9) [facility] [place] METABOL[place]$PANEL W/EGFR-Q 2020-01-01 11:00:00 Test Item Value [...] n. eGFR NON-AFR. See_Comment [Automated me ssage] FINNISH-Q (test The system which code = 89166-9) generated th is result transmitted ref erence range: > OR = 6 0 mL/min/1.73m2. The reference range was not used to int erpret this result as normal/abnormal . eGFR See_Comment [Automated mes rocky] FINNISH-Q (test The system which code = 46421-6) generated th is result transmitted ref erence [...] CALCIUM-Q (test 9.3 mg/dL 8.6-10.3 code = 34226-0) PROTEIN, TOTAL-Q 6.9 g/dL 6.1-8.1 (test code = 2885-2) ALBUMIN-Q (test 4.2 g/dL 3.6-5.1 code = 1751-7) GLOBULIN-Q (test See_Comment [Automated message] code = 53928-8) The system w [employer] generated this result transmitted ref erence range: [...] SIM (test code = PERFORMED BY SIM) [facility] [place]; [address] [place] [address]; FEMI LÓPEZ MD Lab Interpretation Abnormal (test code = 34875-0) [facility] HEMOGLOBIN A1C [id number] 21:02:00 Test Item Value Reference Range Interpretation Comments POCT HBA1C (test code = 4548-4) 8.4 % 4-6 A Lab Interpretation (test code = Abnormal 40735-1) [facility] [place], TXPOCT HEMOGLOBIN A1C [id number] 21:02:00 Test Item Value Reference Range Interpretation Comments POCT HBA1C (test code = 4548-4) 8.4 % 4-6 A Lab Interpretation (test code = Abnormal 32765-6) [facility], TXXR Fluoroscopy Assistance per [id number] 10:02:51Patient: IVÁN VERMA Date/Time09/05/2018 09:46 CDTReason for [...] J acJasperigned (Electronic Signature): 09/05/2018 10:02 amPOC Ibctlzh9594-36-02 06:25:16 Test Item Value Reference Range Interpretation Comments Glucose POC (test 168 mg/dL 74-106 H POC Glucos e used on code = Glucose POC) critical ly ill patients is considered " off-label use" and has no t been cleared or appr cong by the FDA. Altern ative testing methods should be considered i f the patient is crit ically ill. XR Chest 2 [id number] 16:37:20Patient: IVÁN VERMA Date/Time08/30/2018 16:35 CDTReason for [...] the patient is crit ically ill. Blood Sdahdaa1762-71-23 12:02:11No growth at 5 days.Blood Vtijxwa0339-33-76 12:01:35No growth at 5 days.Comprehensive Metabolic Falwt7061-42-03 07:28:15 Test Item Value Reference Range Interpretation [...] = AST) 13 IntlUnit/L 34 Comprehensive Metabolic [id number] 07:28:15 Test Item Value Reference Range Interpretation [...] >60 mL/min/1.73 m2 N AA) Comprehensive Metabolic [id number] 07:28:15 Test Item Value Reference Range Interpretation [...] N eGFR Non-AA) Complete Blood Count with Wobvspcpfdtc3884-70-13 07:09:36 Test Item Value Reference Range Interpretation [...] = Slide Review) GL_SET_SLIDE _REVIEW_A UTO Automated Oufwwznandrp4983-37-60 07:09:36 Test Item Value Reference Range Interpretation Comments Neutro Auto (test code = Neutro Auto) 57.5 % N Lymph Auto (test code = Lymph Auto) 32.8 % N Milam Auto (test code = Milam Auto) 7.1 % N Eos, Auto (test code = Eos, Auto) 1.9 % N Basophil Auto (test code = Basophil 0.7 % N Auto) Neutro Absolute (test code = Neutro 4.2 x10 2.7-7.3 Absolute) Lymph Absolute (test code = Lymph 2.4 x10 0.8-3.5 Absolute) Milam Absolute (test code = Milam 0.5 x10 0.3-0.9 Absolute) Eos Absolute (test code = Eos 0.1 x10 0.0-0.3 Absolute) Baso Absolute (test code = Baso 0.0 x10 0.0-0.1 Absolute) Urine Hlwbxng7714-34-22 06:40:59 C Urine Added by GL_SET_CULT_RFLXNo growth at 2 days.POC Vanbmfp2913-45-34 05:31:35 Test Item Value Reference Range Interpretation Comments Glucose POC (test 140 mg/dL 74-106 H POC Glucos e used on code = Glucose POC) critical ly ill patients is considered " off-label use" and has no t been cleared or appr cong by the FDA. Altern ative testing methods should be considered i f the patient is crit ically ill. POC [id number] 23:42:32 Test Item Value Reference Range Interpretation Comments Glucose POC (test 173 mg/dL 74-106 H POC Glucos e used on code = Glucose POC) critical ly ill patients is considered " off-label use" and has no t been cleared or appr cong by the FDA. Altern ative testing methods should be considered i f the patient is crit ically ill. Basic Metabolic Dkjql8642-75-50 13:13:57 Test Item Value Reference Range Interpretation [...] >60 mL/min/1.73 m2 N AA) Basic Metabolic [id number] 13:13:57 Test Item Value Reference Range Interpretation [...] mL/min/1.73 m2 N eGFR Non-AA) Basic Metabolic Gsyis2091-06-30 13:13:57 Test Item Value Reference Range Interpretation [...] N eGFR Non-AA) Complete Blood Count with Zjbrthoyiwyh3998-13-66 13:02:00 Test Item Value Reference Range Interpretation [...] = Slide Review) GL_SET_SLIDE _REVIEW_A UTO Automated Zoferzjeqyeg9895-17-71 13:02:00 Test Item Value Reference Range Interpretation Comments Neutro Auto (test code = Neutro Auto) 62.1 % N Lymph Auto (test code = Lymph Auto) 27.2 % N Milam Auto (test code = Milam Auto) 9.7 % N Eos, Auto (test code = Eos, Auto) 0.5 % N Basophil Auto (test code = Basophil 0.5 % N Auto) Neutro Absolute (test code = Neutro 5.4 x10 2.7-7.3 Absolute) Lymph Absolute (test code = Lymph 2.4 x10 0.8-3.5 Absolute) Milam Absolute (test code = Milam 0.8 x10 0.3-0.9 Absolute) Eos Absolute (test code = Eos 0.0 x10 0.0-0.3 Absolute) Baso Absolute (test code = Baso 0.0 x10 0.0-0.1 Absolute) XR Fluoroscopy Assistance per [id number] 12:28:35Patient: IVÁN VERMA Date/Time07/27/2018 12:03 CDTReason for ExamRENAL CALCULI ReportEXAMINATION: BILATERAL RETROGRADE PYELOGRAM:CLINICAL INFORMATION: Renal calculi with bilateralnephroureteral stent placementCOMPARISON: CT abdomen pelvis without contrast 07/26/2018Fluoroscopic time: 21 secondsContrast: 10 mL Omnipaque 3008 spot filmsFINDINGS:The district scout executive radiograph shows subcentimeter bilateral calcifications projecting over [...] = AST) 17 IntlUnit/L 10-34 Comprehensive Metabolic [id number] 01:07:16 Test Item Value Reference Range Interpretation [...] 54 mL/min/1.73 m2 N AA) Comprehensive Metabolic [id number] 01:07:16 Test Item Value Reference Range Interpretation [...] N eGFR Non-AA) Complete Blood Count with Uqanqaptbeiw7380-96-52 00:52:37 Test Item Value Reference Range Interpretation [...] = Slide Review) GL_SET_SLIDE _REVIEW_A UTO Automated Sbauvarfkxve7506-78-10 00:52:37 Test Item Value Reference Range Interpretation Comments Neutro Auto (test code = Neutro Auto) 80.9 % N Lymph Auto (test code = Lymph Auto) 11.4 % N Milam Auto (test code = Milam Auto) 7.1 % N Eos, Auto (test code = Eos, Auto) 0.2 % N Basophil Auto (test code = Basophil 0.4 % N Auto) Neutro Absolute (test code = Neutro 8.3 x10 2.7-7.3 H Absolute) Lymph Absolute (test code = Lymph 1.2 x10 0.8-3.5 Absolute) Milam Absolute (test code = Milam 0.7 x10 0.3-0.9 Absolute) Eos Absolute (test code = Eos 0.0 x10 0.0-0.3 Absolute) Baso Absolute (test code = Baso 0.0 x10 0.0-0.1 Absolute) Urinalysis with Culture, if [id number] 00:11:31 Test Item Value Reference Range Interpretation Comments UA Color (test code = UA Adams Yellow A Color) UA Appear (test code [...] UA Micro Ind?) rule GL_SET_UA_MICRO _IND Urinalysis Ynexjkxrtql4116-04-40 00:11:31 Test Item Value Reference Range Interpretation [...] Hyal Cast) CT Abdomen and Pelvis w/o [id number] 23:56:10Patient: IVÁN VERMA Date/Time07/26/2018 23:41 CDTReason for [...] multiple nonobstructing stones in both kidneys.RL: 3901AFC: 61660Wfmpj reportCT scan was performed according to the ALARA (as low as reasonably achievable) principal.Exam Date/Time07/26/2018 23:41 CDTReport Final Dictated by: MD YANCI, MALLORY Crooks DT/TM: 07/27/2018 0:02 amSigned by: MD PINEDA MICHAEL JOSEPHSigned (Electronic Signature): 07/26/2018 11:56 pmBasi Metabolic [id number] 16:10:24 Test Item Value Reference Range Interpretation [...] Calcium 8.9 mg/dL 8.5-10.1 Level) Basic Metabolic [id number] 16:10:24 Test Item Value Reference Range Interpretation [...] mL/min/1.73 m2 N eGFR Non-AA) Basic Metabolic [id number] 16:10:24 Test Item Value Reference Range Interpretation [...] >60 mL/min/1.73 m2 N eGFR Non-AA) Urinalysis [id number] 21:30:24 Test Item Value Reference Range Interpretation Comments UA WBC (test code = UA WBC) 0-5 /HPF 0-5 UA RBC (test code = UA RBC) >100 /HPF 0-4 A UA Bacteria (test code = UA Negative /HPF Negative Bacteria) UA Squam Epithelial (test code 21-73 /LPF 0-20 A = UA Squam Epithelial) Urinalysis with Culture, if [id number] 21:30:24 Test Item Value Reference Range Interpretation [...] Micro Ind?) rule GL_SET_UA_MICRO _IND Basic Metabolic [id number] 21:21:13 Test Item Value Reference Range Interpretation [...] Calcium 9.4 mg/dL 8.5-10.1 Level) Basic Metabolic [id number] 21:21:13 Test Item Value Reference Range Interpretation [...] >60 mL/min/1.73 m2 N AA) Basic Metabolic [id number] 21:21:13 Test Item Value Reference Range Interpretation [...] eGFR Non-AA) CT Abdomen and Pelvis w/o [id number] 21:16:35Patient: IVÁN GALAVIZ Date/Time07/16/2018 21:11 CDTReason for [...] to 2 mm. Final Dictated by: Contributor_system, [facility] RIBE_CTZDictated DT/TM: 07/16/2018 9:19 pmSigned by: Talat [...] = Slide Review) GL_SET_SLIDE _REVIEW_A UTO Automated [id number] 21:05:16 Test Item Value Reference Range Interpretation Comments Neutro Auto (test code = Neutro Auto) 75.1 % N Lymph Auto (test code = Lymph Auto) 17.3 % N Milam Auto (test code = Milam Auto) 5.4 % N Eos, Auto (test code = Eos, Auto) 1.2 % N Basophil Auto (test code = Basophil 1.0 % N Auto) Neutro Absolute (test code = Neutro 5.9 x10 2.7-7.3 Absolute) Lymph Absolute (test code = Lymph 1.3 x10 0.8-3.5 Absolute) Milam Absolute (test code = Milam 0.4 x10 0.3-0.9 Absolute) Eos Absolute (test code = Eos 0.1 x10 0.0-0.3 Absolute) Baso Absolute (test code = Baso 0.1 x10 0.0-0.1 Absolute) POC [id number] 20:47:39 Test Item Value Reference Range Interpretation [...] crit ically ill. [facility] [place] [id number] [facility]. [place] [phone] Patient Name: Iván Verma Medical Record#: [id number] Address: [address] City/State/Zip: [place] [address]: Pilar Plata MD Insurance: [facility] PPO [place] /Age/Sex: 1960/60/M Self Pay Admit/Reg Date: 09/22/[address]: Pilar Plata MD Location: [facility]/ PCP: Padilla Cook MD Date of Service: 09/22/20 Order (s): XR KUB CPT Code: 59703 Report Number: [id number] Reason for Exam: N20.0 SUPINE ABDOMEN/KUB ONE [...]
[2022-10-13 21:11] LABS: Protime INR 1.15
[2022-10-13 21:12] LABS: Absolute Lymphocytes (CBC) 1.7 K/uL (0.7-4.9); Hematocrit 41.1 % (39.6-49.0); MCV 92.3 fL (80-100); MPV 8.4 fL (7.6-11.3); Platelets 206 thou/uL (152-406); RBC Red Blood Cell Count 4.45 M/uL (4.33-5.43)
[2022-10-13 21:41] LABS: Albumin 3.9 g/dL (3.4-5.0); Bilirubin Direct 0.1 mg/dL (0-0.2); Bilirubin Indirect, Calculated 0.4 mg/dL (0.2-0.8); Bilirubin Total 0.5 mg/dL (0.2-1.0); Magnesium 2.1 mg/dL (1.6-2.4); Potassium 3.6 mEq/L (3.5-5.1); Protein, Total 7.4 g/dL (6.4-8.2); Troponin High Sensitivity 4.6 pg/mL (<58.9)
--- NOTE | 2022-10-13 21:53 | RAD REPORT ---
EXAM DESCRIPTION: [place] Single View10/13/2022 9:42 pm CLINICAL HISTORY: Chest pain COMPARISON: none FINDINGS: The lungs appear clear of acute infiltrate. The heart is normal size IMPRESSION: No acute abnormalities displayed
--- NOTE | 2022-10-13 23:25 | ER ---
Nurse's Notes [facility] Name: Iván Betancourt Age: 62 yrs Sex: Male : 1960 Arrival Date: 10/13/2022 Time: 20:39 Bed 5 Private MD: Diagnosis: Unstable angina;Acute shingles Presentation: 10/13 20:48 Chief complaint: Patient states: chest pain off and on x 3 days. Coronavirus screen: Vaccine status: Patient reports being unvaccinated. Ebola Screen: Patient negative for fever greater than or equal to 101.5 degrees Fahrenheit, and additional compatible Ebola Virus Disease symptoms. Initial Sepsis Screen: Does the patient meet any 2 criteria? No. Patient's initial sepsis screen is negative. Does the patient have a suspected source of infection? No. Patient's initial sepsis screen is negative. Risk Assessment: Do you want to hurt yourself or someone else? Patient reports no desire to harm self or others. Onset of symptoms was October 10, 2022. 20:48 Method Of Arrival: Ambulatory 20:48 Acuity: KAYE 3 Triage Assessment: 20:59 General: Appears in no apparent distress. Behavior is calm, cooperative. Pain: kl Complains of pain in anterior aspect of right upper chest and anterior aspect of left upper chest Pain currently is 5 out of 10 on a pain scale. Cardiovascular: Reports chest pain, shortness of breath, Rhythm is sinus rhythm. Respiratory: No deficits noted. GI: No deficits noted. No signs and/or symptoms were reported involving the gastrointestinal system. : No deficits noted. No signs and/or symptoms were reported regarding the genitourinary system. Derm: No deficits noted. No signs and/or symptoms reported regarding the dermatologic system. Historical: - Allergies: 21:00 No Known Allergies; bp - Home Meds: 21:00 losartan-hydrochlorothiazide 100-25 mg Oral tab 1 tab once daily [Active]; Vimovo bp 500-20 mg Oral TbID 1 tab daily [Active]; metformin 750 mg Oral Tb24 3 tabs once daily [Active]; - PMHx: 21:00 Diabetes - NIDDM; Hypertension; bp - Immunization history:: Adult Immunizations up to date. - Family history:: not pertinent. - Social history:: Smoking status: Patient denies any tobacco usage or history of. Screenin:00 [facility] ED Fall Risk Assessment (Adult) History of falling in the last 3 months, bp including since admission No falls in past 3 months (0 pts). Abuse screen: Denies threats or abuse. Denies injuries from another. Nutritional screening: No deficits noted. Tuberculosis screening: No symptoms or risk factors identified. Assessment: 21:00 General: SEE TRIAGE NOTE. bp 10/14 14:06 Reassessment: Pt requested discharge from Dr. Ellis. Scans completed, results discussed ld1 with Pt via phone. Pt requesting to leave and get Doppler completed outpatient with Dr. Leong. Dr. Ellis discussed options with patient, patient discharged at this time. Vital Signs: 10/13 20:48 BP 136 / 77; Pulse 73; Resp 18; Temp 98.2; Pulse Ox 99% on R/A; Weight 117.93 kg (R); kl Height 5 ft. 11 in. ; Pain 5/10; 22:30 BP 125 / 66; Pulse 71; Resp 16; Pulse Ox 93% ; bp 20:48 Body Mass Index 36.26 (117.93 kg, 180.34 cm) kl 20:48 Pain Scale: Adult ED Course: 20:45 Patient arrived in ED. cc5 20:48 Samuel Husain MD is Attending Physician. sp4 20:49 Riki Masters, CORRINA is Primary Nurse. bp 20:59 Triage completed. kl 21:00 EKG completed in triage. Results shown to MD. kl 21:00 Patient has correct armband on for positive identification. Bed in low position. Call bp light in reach. Client placed on continuous cardiac and pulse oximetry monitoring. NIBP monitoring applied. 21:00 Inserted saline lock: 20 gauge in right forearm, using aseptic technique. Blood bp collected. 21:44 XRAY Chest (1 view) In Process Unspecified. EDMS 23:18 Arm band placed on. as6 23:24 aRsheed Cole MD is Hospitalizing Provider. sp4 10/14 11:54 Troponin High Sensitivity Sent. ko1 11:56 Provided Education on: NA. ko1 11:56 No provider procedures requiring assistance completed. Patient admitted, IV remains in ko1 place. Administered Medications: 10/13 23:30 Drug: Acyclovir PO 800 mg Route: PO; bp 10/14 00:10 Drug: Enoxaparin Sub-Q 100 mg Route: Sub-Q; Site: right lower abdomen; as6 Medication: 10/13 21:00 VIS not applicable for this client. bp Outcome: 23:24 Decision to Hospitalize by Provider. sp4 10/14 11:56 Admitted to Tele accompanied by tech, via wheelchair, room 208, with chart. ko1 Condition: stable Instructed on the need for admit. 14:07 Patient left the ED. ld1 Signatures: Dispatcher [employer] Marimar Rose, RN Riki Gomez RN RN bp Anne-Marie Stephens RN RN ld1 Eric Reynolds RN RN as6 Clare Saravia RN RN ko1 Yeni Oneil cc5 Samuel Husain MD MD sp4
--- NOTE | 2022-10-13 23:25 | EDPHYS ---
Physician Documentation [facility] Name: Iván Betancourt Age: 62 yrs Sex: Male : 1960 Arrival Date: 10/13/2022 Time: 20:39 Bed 5 Private MD: ED Physician Samuel Husain HPI: 10/13 20:48 This 62 yrs old Male presents to ER via Unassigned with complaints of Chest sp4 Pain. 20:55 Very pleasant 62-year-old male presents with midsternal chest pain for the past 3 days sp4 described as pressure type pain without radiation nonexertional, without shortness of breath or diaphoresis. No history of similar pains. Patient's circulation assistant is Dr. Reyes in [place]. Patient has history of hypertension and chronic back pain. He reports he has had a stress test 1-1/2 years ago which was reportedly normal. Patient took aspirin today 325 mg. Patient denied any vomiting. . Historical: - Allergies: 21:00 No Known Allergies; bp - Home Meds: 21:00 losartan-hydrochlorothiazide 100-25 mg Oral tab 1 tab once daily [Active]; Vimovo bp 500-20 mg Oral TbID 1 tab daily [Active]; metformin 750 mg Oral Tb24 3 tabs once daily [Active]; - PMHx: 21:00 Diabetes - NIDDM; Hypertension; bp - Immunization history:: Adult Immunizations up to date. - Family history:: not pertinent. - Social history:: Smoking status: Patient denies any tobacco usage or history of. ROS: 20:55 Constitutional: Negative for fever, chills, and weight loss, Cardiovascular: Negative sp4 for palpitations, and edema, positive midsternal chest pain positive nonexertional chest pain 20:55 All other systems are negative. Exam: 20:55 Constitutional: This is a well developed, well nourished patient who is awake, alert, sp4 and in no acute distress. Head/Face: Normocephalic, atraumatic. Eyes: Pupils equal round and reactive to light, extra-ocular motions intact. Lids and lashes normal. Conjunctiva and sclera are not injected. Cornea within normal limits. Periorbital areas with no swelling, redness, or edema. ENT: Nares patent. No nasal discharge, no septal abnormalities noted. Tympanic membranes are normal and external auditory canals are clear. Oropharynx with no redness, swelling, or masses, exudates, or evidence of obstruction, uvula midline. Mucous membranes moist. Neck: Trachea midline, no thyromegaly or masses palpated, and no cervical lymphadenopathy. Supple, full range of motion without nuchal rigidity, or vertebral point tenderness. Chest/axilla: Normal chest wall appearance and motion. Nontender with no deformity. No lesions are appreciated. Cardiovascular: Regular rate and rhythm with a normal S1 and S2. No gallops, murmurs, or rubs. Normal PMI, no JVD. No pulse deficits. Respiratory: Lungs have equal breath sounds bilaterally, clear to auscultation and percussion. No rales, rhonchi or wheezes noted. No increased work of breathing, no retractions or nasal flaring. Abdomen/GI: Soft, non-tender, with normal bowel sounds. No distension or tympany. No guarding or rebound. No evidence of tenderness throughout. Back: No spinal tenderness. No costovertebral tenderness. Skin: Warm, dry with normal turgor. Normal color with no rashes, no lesions, and no evidence of cellulitis. MS/ Extremity: Pulses equal, no cyanosis. Neurovascular intact. Full, normal range of motion. Neuro: Awake and alert, GCS 15, oriented to person, place, time, and situation. Cranial nerves II-XII grossly intact. Motor strength 5/5 in all extremities. Sensory grossly intact. Psych: Awake, alert, with orientation to person, place and time. Behavior, mood, and affect are within normal limits 20:57 ECG was reviewed by the Attending Physician. EKG time 2051, there is normal sinus sp4 rhythm with a rate of 72, no ST elevation or depression, overall normal EKG. No ectopy 23:25 EKG 2256 normal sinus rhythm, normal EKG, normal intervals, no ST elevation or sp4 depression, no ectopy. Vital Signs: 20:48 BP 136 / 77; Pulse 73; Resp 18; Temp 98.2; Pulse Ox 99% on R/A; Weight 117.93 kg (R); kl Height 5 ft. 11 in. ; Pain 5/10; 22:30 BP 125 / 66; Pulse 71; Resp 16; Pulse Ox 93% ; bp 20:48 Body Mass Index 36.26 (117.93 kg, 180.34 cm) kl 20:48 Pain Scale: Adult kl MDM: 20:55 Patient medically screened. sp4 23:24 Differential diagnosis: abnormal EKG, acute myocardial infarction, acute pericarditis, sp4 anxiety, coronary artery disease chest wall pain, congestive heart failure cholecystitis. HEART Score: History: Highly Suspicious (2), ECG: Normal (0), Age: > 45 and < 65 years (1), Risk Factors: > or = 3 Risk factors for atherosclerotic disease (2), Troponin: < or = 1 x Normal Limit (0), Total Score = 5. Data reviewed: vital signs, nurses notes, old medical records, lab test result(s), EKG, radiologic studies, plain films. 23:26 ED course: On repeat exam with discovered small area of shingles right axillary area. sp4 Patient was given acyclovir p.o. one-time dose. We will administer Lovenox as well for unstable angina. 10/13 20:48 Order name: Basic Metabolic Panel; Complete Time: 22:38 sp4 10/13 20:48 Order name: CBC with Diff; Complete Time: 22:38 sp4 10/13 20:48 Order name: LFT's; Complete Time: 22:38 sp4 10/13 20:48 Order name: Magnesium; Complete Time: 22:38 sp4 10/13 20:48 Order name: NT PRO-BNP; Complete Time: 22:38 4 10/13 20:48 Order name: PT-INR; Complete Time: 22:38 [facility] 10/13 20:48 Order name: Troponin HS; Complete Time: 22:38 4 10/13 21:24 Order name: Lipase; Complete Time: 22:38 EDAK 10/13 22:39 Order name: Troponin High Sensitivity; Complete Time: 00:08 sp4 10/14 00:51 Order name: Basic Metabolic Panel EDAK 10/14 00:51 Order name: Basic Metabolic Panel; Complete Time: 20:08 EDMS 10/14 00:51 Order name: Basic Metabolic Panel EDMS 10/14 00:51 Order name: CBC with Automated Diff EDMS 10/14 00:51 Order name: CBC with Automated Diff; Complete Time: 20:08 EDMS 08/31 00:51 Order name: CBC with Automated Diff EDMS 10/14 00:51 Order name: Lipid Profile EDMS 10/14 00:51 Order name: Lipid Profile; Complete Time: 20:08 EDMS 10/14 00:51 Order name: Troponin High Sensitivity EDMS 10/14 00:51 Order name: Troponin High Sensitivity; Complete Time: 20:08 EDMS 10/14 00:51 Order name: Troponin High Sensitivity; Complete Time: 20:08 EDMS 10/14 00:51 Order name: Hemoglobin A1c; Complete Time: 20:08 EDMS 10/14 00:51 Order name: T4 Free; Complete Time: 20:08 EDMS 10/14 00:51 Order name: Thyroid Stimulating Hormone; Complete Time: 20:08 EDMS 10/14 07:44 Order name: Glucose, Ancillary Testing; Complete Time: 20:08 EDMS 10/14 07:46 Order name: D-Dimer; Complete Time: 20:08 EDMS 10/13 20:48 Order name: XRAY Chest (1 view); Complete Time: 22:38 [facility] 10/14 13:25 Order name: US; Complete Time: 20:08 EDMS 10/14 13:34 Order name: CT; Complete Time: 20:08 EDMS 10/13 20:48 Order name: EKG; Complete Time: 20:49 sp4 10/13 22:39 Order name: EKG; Complete Time: 22:40 sp4 10/14 00:51 Order name: 60g Consistent Carbohydrate (ADA 1800/2000); Complete Time: 11:55 EDMS 10/13 20:48 Order name: Cardiac monitoring; Complete Time: 20:56 sp4 10/13 20:48 Order name: EKG - Nurse/Tech; Complete Time: 20:56 sp4 10/13 20:48 Order name: IV Saline Lock; Complete Time: 20:56 sp4 10/13 20:48 Order name: Labs collected and sent; Complete Time: 20:56 sp4 10/13 20:48 Order name: O2 Per Protocol; Complete Time: 20:56 sp4 10/13 20:48 Order name: O2 Sat Monitoring; Complete Time: 20:57 sp4 10/13 22:39 Order name: EKG - Nurse/Tech; Complete Time: 23:09 sp4 EC:57 Rate is 72 beats/min. Rhythm is regular, Normal Sinus Rhythm. QRS [place] is Normal. CT sp4 interval is normal. QRS interval is normal. QT interval is normal. No Q waves. T waves are Normal. No ST changes noted. Clinical impression: Normal ECG. Interpreted by me. Administered Medications: 23:30 Drug: Acyclovir PO 800 mg Route: PO; bp 10/14 00:10 Drug: Enoxaparin Sub-Q 100 mg Route: Sub-Q; Site: right lower abdomen; as6 Disposition Summary: 10/13/22 23:24 Hospitalization Ordered Hospitalization Status: Observation sp4 Provider: Rasheed Cole sp4 Condition: Stable sp4 Problem: new sp4 Symptoms: are unchanged sp4 Bed/Room Type: Standard sp4 Location: Telemetry/MedSurg (observation)(10/14/22 11:51) kj1 Room Assignment: [facility](10/14/22 13:04) kj Diagnosis - Unstable angina sp4 - Acute shingles sp4 Discharge Instructions: - Discharge Summary Sheet sp4 Forms: - Work release form rg4 - Medication Reconciliation Form sp4 - SBAR form sp4 - Leadership Thank You Letter sp4 Prescriptions: - Valtrex 1 gram Oral tablet - take 1 tablet by ORAL route every 12 hours for 10 days; 20 tablet; Refills: 0, sp4 Product Selection Permitted Signatures: Dispatcher [employer] EDAK Giovanni Mccray FNP-C [employer]INTAINER-Cla1 Natalee Reyes, RN RN Riki Rapp RN RN bp Jackson, Kandis kj1 Eric Reynolds RN RN as6 Samuel Husain MD MD sp4 Corrections: (The following items were deleted from the chart) 10/13 21:24 20:55 LIPASE+C.LAB.BRZ ordered. EDAK EDAK 10/14 00:18 10/13 23:24 Telemetry/MedSurg (observation) sp4 10/14 00:18 10/13 23:24 sp4 10/14 11:51 00:18 [facility] ER HOLD cg kj1 11:51 00:18 ERHOLD- cg kj1 13:04 11:51 208 kj1 kj1
[2022-10-13] MEDS ORDERED: ACYCLOVIR 400 MG TABLET ONE (23:38)
[2022-10-14] MEDS ORDERED: ENOXAPARIN 100 MG/ML SYR SQ ONE (00:20)
[2022-10-14] MEDS ORDERED: ONDANSETRON 4 MG/2 ML VIAL IV PRN (00:48)
[2022-10-14] MEDS ORDERED: MORPHINE 2 MG/ML SYR IV PRN (00:48)
[2022-10-14] MEDS ORDERED: ACETAMINOPHEN 500 MG TAB PO PRN (00:48)
--- NOTE | 2022-10-14 00:54 | P.HP ---
Certification for Inpatient Patient admitted to: Observation With expected LOS: <2 Midnights Patient will require the following post-hospital care: None Practitioner: I am a practitioner with admitting privileges, knowledge of patient current condition, hospital course, and medical plan of care. Services: Services provided to patient in accordance with Admission requirements found in Title 42 Section 412.3 of the Code of Federal Regulations <Giovanni Mccray - Last Filed: 10/14/22 00:50> Patient History Date of Service: 10/14/22 Reason for admission: Chest pain History of Present Illness: 62-year-old male with history of alm-ckhvufz-guwutzpnx diabetes, hypertension, hyperlipidemia, gout, BPH presents to the emergency department with chief complaint of chest pain. He reports intermittent chest pain for the last 3 days described as pressure-like nonradiating with no associated signs or symptoms, he reports he may have a little bit of relief with belching but cannot be sure. He also noted a rash that started on his right upper extremity approximately 3 days ago, he has shingles in this area although no lesions noted on the chest, patient does feel as if pain crosses the midline of his chest although there is no rash present to the chest wall on either side. He was evaluated in the emergency department his labs were significant for initial high-sensitivity troponin of 4.6, repeat 4.8 glucose 185 chest x-ray negative for acute findings. ED provider wishes to admit under observation for ACS rule out. - Past Medical/Surgical History -: Xdi-dsqyztf-btbtyfycg diabetes -: Hypertension -: Hyperlipidemia -: Gout -: BPH -: Hernia repair -: Left leg surgery, right knee scope, right shoulder surgery Psychosocial/ Personal History: Works as a safety official at [employer], lives at home with family - Family History Family History: Reviewed- Non-Contributory - Social History Smoking Status: Never smoker Alcohol use: No CD- Drugs: No Caffeine use: Yes Place of Residence: Home <Giovanni Mccray - Last Filed: 10/14/22 00:50> Date of Service: 10/14/22 <Deangelo Ellis - Last Filed: 10/14/22 14:43> Allergies No Known Allergies Allergy (Verified 08/06/15 07:45) Home Medications: Amphetamine Sulfate [Evekeo] 15 mg PO DAILY 08/04/15 Ascorbic Acid [Vitamin C*] 500 mg PO DAILY 08/04/15 B-Complex with Vitamin C [Vitamin B-Complex & C] 1 each PO DAILY 08/04/15 Cholecalciferol (Vitamin D3) [Vitamin D3] 1,000 unit PO DAILY 08/04/15 Cinnamon Bark [Cinnamon] 500 mg PO DAILY 08/04/15 Docosahexanoic AC/Epa [Fish Oil 1,000 MG*] 1,000 mg PO BID 08/04/15 Etodolac [Lodine Xl] 500 mg PO DAILY 08/04/15 Ginkgo Biloba [place] Extract [Ginkgo Biloba] 60 mg PO DAILY 08/04/15 Losartan Potassium [Cozaar] 100 mg PO DAILY 08/04/15 Metformin HCl [Glucophage*] 500 mg PO BIDWM 08/04/15 Multivitamin [Multivitamins] 1 each PO DAILY 08/04/15 Niacin [Niacin ER] 1,000 mg PO DAILY 08/04/15 Vitamin E [Vitamin E*] 400 iu PO DAILY 08/04/15 Ciprofloxacin HCl [Cipro 500 MG Tablet] 500 mg PO BID #12 tab 08/06/15 Codeine/APAP [Tylenol #3*] 1 tab PO Q6HP PRN #30 tab 08/06/15 Promethazine Tab [Phenergan*] 25 mg PO Q6HP PRN #10 tab 08/06/15 Valacyclovir [Valtrex*] 1,000 mg PO TID tab 10/14/22 Review of Systems 10-point ROS is otherwise unremarkable Cardiovascular: Chest Pain <Attema,Giovanni Strange Juan David - Last Filed: 10/14/22 00:50> Physical Examination - Physical Exam General: Alert, In no apparent distress, Oriented x3 HEENT: Atraumatic, PERRLA, Mucous membr. moist/pink, EOMI, Sclerae nonicteric Neck: Supple, 2+ carotid pulse no bruit, No LAD, Without JVD or thyroid abnormality Respiratory: Clear to auscultation bilaterally, Normal air movement Cardiovascular: Regular rate/rhythm, Normal S1 S2 Gastrointestinal: Normal bowel sounds, No tenderness Musculoskeletal: No tenderness Integumentary: Other (Vesicular rash present to the right upper extremity) Neurological: Normal speech, Normal strength at 5/5 x4 extr, Normal tone, Normal affect Lymphatics: No axilla or inguinal lymphadenopathy - Studies Laboratory Data (last 24 hrs) 10/13/22 10/13/22 10/13/22 20:55 20:55 20:55 WBC 9.60 Hgb 14.4 Hct 41.1 Plt Count 206 PT 12.6 H INR 1.15 Sodium Potassium BUN Creatinine Glucose Magnesium Total Bilirubin AST ALT Alkaline Phosphatase Lipase Cancelled 10/13/22 20:55 WBC Hgb Hct Plt Count PT INR Sodium 136 Potassium 3.6 BUN 17 Creatinine 1.21 Glucose 185 H Magnesium 2.1 Total Bilirubin 0.5 AST 13 L ALT 30 Alkaline Phosphatase 92 Lipase 23 <Giovanni Mccray - Last Filed: 10/14/22 00:50> - Studies Laboratory Data (last 24 hrs) 10/13/22 10/13/22 10/13/22 20:55 20:55 20:55 WBC 9.60 Hgb 14.4 Hct 41.1 Plt Count 206 PT 12.6 H INR 1.15 Sodium Potassium BUN Creatinine Glucose Magnesium Total Bilirubin AST ALT Alkaline Phosphatase Lipase Cancelled 10/13/22 20:55 WBC Hgb Hct Plt Count PT INR Sodium 136 Potassium 3.6 BUN 17 Creatinine 1.21 Glucose 185 H Magnesium 2.1 Total Bilirubin 0.5 AST 13 L ALT 30 Alkaline Phosphatase 92 Lipase 23 <Deangelo Ellis - Last Filed: 10/14/22 14:43> Assessment and Plan - Plan Assessment: Chest pain rule out ACS Herpes zoster Diabetes mellitus type 9tui-frtthsa-rjerferxa Hypertension Hyperlipidemia Gout BPH Plan: Chest pain rule out ACS Trend troponins, monitor on telemetry, cardiology consult. Aspirin, statin ordered. As needed pain medications. Initial 2 high sensitive troponins negative. Reports he had a stress test about 2 years ago that was negative has never had a heart catheterization before. Shingles may be contributing/causative pain although his pain is described as a pressure and crosses midline of his chest. Herpes zoster Continue valacyclovir started 10/13/2022 Diabetes mellitus type 6cvl-qwyjfcg-cpbroeina ACHS Accu-Chek, sliding scale insulin, A1c in morning. Hypertension Hyperlipidemia Gout BPH Continue home medications once verified. DVT PPX: Lovenox Code status: Full Discharge Plan: Home Plan to discharge in: 24 Hours - Advance Directives Does patient have a Living Will: No Does patient have a Durable POA for Healthcare: No - Code Status/Comfort Care Code Status Assessed: Yes (Full code) Critical Care: No Time Spent Managing Pts Care (In Minutes): 55 <Giovanni Mccray - Last Filed: 10/14/22 00:50> Physician Review: Patient Assessed, Agree with Above Assessment and Plan <Deangelo Ellis - Last Filed: 10/14/22 14:43>
[2022-10-14 02:03] VITALS: BMI 36.2
[2022-10-14 04:40] LABS: Absolute Lymphocytes (CBC) 1.7 K/uL (0.7-4.9); Hematocrit 38.4 % (39.6-49.0); Lymphocytes % 25.5 % (15.3-44.8); MCV 92.2 fL (80-100); MPV 8.6 fL (7.6-11.3); Platelets 181 thou/uL (152-406); RBC Red Blood Cell Count 4.17 M/uL (4.33-5.43)
[2022-10-14 05:10] LABS: Potassium 3.7 mEq/L (3.5-5.1); Thyroid Stimulating Hormone 2.41 uIU/mL (0.358-3.740); Troponin High Sensitivity 5.9 pg/mL (<58.9)
[2022-10-14] MEDS ORDERED: INSULIN -REGULAR HUMAN 50 UNIT/0.5 ML ML SQ SCH (07:30)
[2022-10-14] MEDS ORDERED: POTASSIUM 25 MEQ EFFERV TAB PO ONE (07:40)
[2022-10-14] MEDS ORDERED: ASPIRIN 81 MG CHEWABLE TABLET ONE (07:48)
[2022-10-14] MEDS ORDERED: POTASSIUM 25 MEQ EFFERV TAB ONE (07:57)
[2022-10-14] MEDS ORDERED: ASPIRIN EC 81 MG TAB PO ONE (07:57)
[2022-10-14 08:38] VITALS: BP 134/76; TEMP 97.9
[2022-10-14] MEDS ORDERED: VALACYCLOVIR 500 MG TAB PO SCH (09:00)
[2022-10-14] MEDS ORDERED: ASPIRIN EC 81 MG TAB PO SCH (09:00)
--- NOTE | 2022-10-14 12:04 | EKG ---
Test Date: 2022-10-13 Test Time: 20:52:34 Customer Professional: RV MEASUREMENT RESULTS: Intervals: Rate: 72 RI: 162 QRSD: 84 QT: 376 QTc: 411 Latty: P: 52 RI: 162 QRS: -2 T: 36 INTERPRETIVE STATEMENTS: Normal sinus rhythm Normal ECG Compared to ECG 08/04/2015 15:53:15 Left ventricular hypertrophy no longer present Electronically Signed On 10-14-22 12:02:39 CDT by Dany Tabares
--- NOTE | 2022-10-14 12:10 | ECHO ---
HEIGHT: 5 ft 11 in WEIGHT: 260 lb 0 oz DATE OF STUDY: 10/14/[address]: Deangelo Ellis MD 2-DIMENSIONAL: YES M.MODE: YES DOPPLER: YES COLOR FLOW: YES TDS: PORTABLE: YES DEFINITY: BUBBLE STUDY: DIAGNOSIS: CHEST PAIN CARDIAC HISTORY: CATHERIZATION: SURGERY: PROSTHETIC VALVE: PACEMAKER: MEASUREMENTS (cm) DIASTOLIC (NORMALS) SYSTOLIC (NORMALS) IVSd 1.1 (0.6-1.2) LA Diam 3.7 (1.9-4.0) LVEF 55% LVIDd 3.8 (3.5-5.7) LVIDs 2.7 (2.0-3.5) %FS 28% LVPWd 1.1 (0.6-1.2) Ao Diam 3.0 (2.0-3.7) 2 DIMENSIONAL ASSESSMENT: RIGHT ATRIUM: NORMAL LEFT ATRIUM: NORMAL RIGHT VENTRICLE: NORMAL LEFT VENTRICLE: NORMAL TRICUSPID VALVE: MILD TRICUSPID REGURGITATION MITRAL VALVE: MILD MITRAL REGURGITATION PULMONIC VALVE: NORMAL AORTIC VALVE: NORMAL PERICARDIAL EFFUSION: NONE AORTIC ROOT: NORMAL LEFT VENTRICULAR WALL MOTION: NORMAL DOPPLER/COLOR FLOW: SEE BELOW COMMENTS: 1. NORMAL LEFT VENTRICULAR EJECTION FRACTION 55-60% 2. NORMAL WALL MOTION 3. MILD MITRAL REGURGITATION 4. MILD TRICUSPID REGURGITATION TECHNOLOGIST: CONSTANCE EDDY
--- NOTE | 2022-10-14 13:24 | RAD REPORT ---
EXAM DESCRIPTION: US - Extrem Venous W Compress Alfonso - 10/14/2022 1:03 pm CLINICAL HISTORY: Elevated D-dimer. Chest pain COMPARISON: None. TECHNIQUE: Real-time sonographic evaluation of the bilateral lower extremity deep venous systems was performed. FINDINGS: Normal compressibility, flow augmentation, phasic flow and spontaneous flow is identified in both the left and right lower extremity deep venous systems. No intraluminal filling defects seen. Collapsed mildly complex right popliteal fossa 3.4 x 1.4 x 0.8 cm cyst, likely a collapsed Daigle's c yst. IMPRESSION: No evidence of DVT in either lower extremity. Small probably collapsed right popliteal fossa Daigle cyst.
--- NOTE | 2022-10-14 13:34 | RAD REPORT ---
EXAM DESCRIPTION: CT - Chest For Pe Angio - 10/14/2022 1:08 pm CLINICAL HISTORY: elevated ddimer COMPARISON: Chest Single View dated 10/13/2022 TECHNIQUE: Thin axial CT images of the chest were obtained following administration of 100 mL Isovue 370 IV contrast. Multiplanar reconstructions, and maximum intensity projection reconstructions were generated and reviewed. Exam utilizes a protocol for optimal evaluation of pulmonary arterial tree. All CT scans are performed using dose optimization technique as appropriate and may include automated exposure control or mA/KV adjustment according to patient size. FINDINGS: Pulmonary arteries are normal. No emboli or other suspicious finding. No acute or signific ant aorta findings. No mass or infiltrate in the lung parenchyma. Geographic subtle ground-glass densities centrally and bilaterally, may relate to mild obstructive airway changes or decreased ventilatory effort. No pleura l thickening or pleural effusion. No pneumothorax. No abnormal mediastinal or hilar masses or lymphadenopathy seen. No chest wall mass or abnormal axill iary lymphadenopathy. Mild fat stranding and mildly prominent lymph nodes in the right axilla, nonspecific. IMPRESSION: No evidence of acute central pulmonary emboli. No other acute pulmonary process. Mild fat stranding and mildly prominent lymph nodes in the right axilla, nonspecific and could relate to an infectious or inflammatory process.
--- NOTE | 2022-10-14 13:53 | P.DS ---
Admission Date: 10/14/22 Discharge Date: 10/14/22 Disposition: ROUTINE DISCHARGE Discharge Condition: GOOD Reason for Admission: Chest pain Consultations: 1. Cardiology Hospital Course: DIAGNOSES: # Chest Pain, likely non-cardiac # Right Upper Extremity Shingles (Herpes Zoster) # Non-Specific Right Axillary Lymphadenopathy likely due to Shingles # Type II Diabetes Mellitus # Hypertension # Hyperlipidemia # Benign Prostatic Hyperplasia # Gout # Small Right Daigle Cyst HOSPITAL COURSE: Mr. Iván Betancourt is a pleasant 62 year old male with a past medical history significant for type II diabetes mellitus, hypertension, hyperlipidemia, benign prostatic hyperplasia, and gout who was admitted to the [facility] on 10/14/2022 for chest pain. He was admitted to the Medicine service. Upon further evaluation, his EKG was without STEMI criteria. His serial troponin were 4.6 -> 4.8 -> 5.9 -> 5.6. His chest x-ray revealed, "no acute abnormalities displayed." His transthoracic echocardiogram revealed, "1. normal left ventricular ejection fraction 55-60% 2. normal wall motion 3. mild mitral regurgitation 4. mild tricuspid regurgitati on." Cardiology was consulted and he was evaluated by Dr. Tabares. He has cleared him for discharge with outpatient follow-up. His evaluation was notable for a d-dimer of 948. His bilateral lower extremity Doppler revealed, "no evidence of DVT in either lower extremity. Small probably collapsed right popliteal fossa Daigle cyst." His CT chest angiogram revealed, "no evidence of acute central pulmonary emboli. No other acute pulmonary process. Mild fat stranding and mildly prominent lymph nodes in the right axilla, nonspecific and could relate to an infectious or inflammatory process." It seemed most likely that his right axillary lymphadenopathy was due to the shingles infection. He was advised to have this lymph node re-imaged in 2-3 weeks to exclude malignancy and to ensure resolution of lymphadenopathy. Although suspicion for a right upper extremity DVT is low, he was offered a right upper extremity Doppler, but he declined because he needs to leave the hospital for a today. He understands the risks of being discharged with an undiagnosed DVT including, but not limited to, progression of clot, pulmonary embolism, and . He would like to be discharged despite these risks. I spoke with Dr. Leong (his PCP), who agreed to order the Doppler for tomorrow. Mr. Betancourt has agreed to attend the scheduled appointment with Dr. Leong tomorrow. On 10/14/2022, he was seen on rounds and deemed medically stable for discharge. He was discharged with instructions to schedule follow-up appointments with his PCP (Dr. Leong) and with Cardiology (Dr. Tabares). He was provided a prescription for valacyclovir. He was given the opportunity to ask questions and reported no further questions. Furthermore, all questions were answered to the best of my ability. A copy of this discharge summary will be sent to the above providers to facilitate continuity of care. Today, I personally spent 40 minutes on his case, of which greater than 50% of the time was spent in patient education, counseling, and coordination of care as described above. Vital Signs/Physical Exam: Temp Pulse Resp BP Pulse Ox 97.9 F 78 18 134/76 100 10/14/22 08:00 10/14/22 08:00 10/14/22 08:00 10/14/22 08:00 10/14/22 08:00 General: Alert, In no apparent distress, Oriented x3 HEENT: Atraumatic, Mucous membr. moist/pink, Sclerae nonicteric Neck: JVD not distended Respiratory: Clear to auscultation bilaterally, Normal air movement Cardiovascular: No edema, Regular rate/rhythm, Normal S1 S2, No gallops, No rubs, No murmurs Gastrointestinal: Normal bowel sounds, Soft and benign, Non-distended, No tenderness, No rebound, No guarding Musculoskeletal: No clubbing Integumentary: Rash(es) (vesicular rash along right upper extremity and on the anterolateral aspect of right chest - consistent with shingles) Neurological: Normal speech, Normal affect Laboratory Data at Discharge: WBC 6.70 thou/uL (4.3-10.9) 10/14/22 04:10 Hgb 13.7 g/dL (13.6-17.9) 10/14/22 04:10 Hct 38.4 % (39.6-49.0) L 10/14/22 04:10 Plt Count 181 thou/uL (152-406) 10/14/22 04:10 PT 12.6 SECONDS (9.5-12.5) H 10/13/22 20:55 INR 1.15 10/13/22 20:55 Sodium 139 mEq/L (136-145) 10/14/22 04:10 Potassium 3.7 mEq/L (3.5-5.1) 10/14/22 04:10 BUN 15 mg/dL (7-18) 10/14/22 04:10 Creatinine 1.14 mg/dL (0.70-1.30) 10/14/22 04:10 Glucose 144 mg/dL (74-106) H 10/14/22 04:10 Magnesium 2.1 mg/dL (1.6-2.4) 10/13/22 20:55 Total Bilirubin 0.5 mg/dL (0.2-1.0) 10/13/22 20:55 AST 13 U/L (15-37) L 10/13/22 20:55 ALT 30 U/L (16-61) 10/13/22 20:55 Alkaline Phosphatase 92 U/L (45-117) 10/13/22 20:55 Triglycerides 341 mg/dL (<150) H 10/14/22 04:10 Cholesterol 108 mg/dL (<200) 10/14/22 04:10 HDL Cholesterol 28 mg/dL (40-60) L 10/14/22 04:10 Cholesterol/HDL Ratio 3.86 10/14/22 04:10 Lipase 23 U/L (13-75) 10/13/22 20:55 Lipase Cancelled 10/13/22 20:55 Home Medications: Amphetamine Sulfate [Evekeo] 15 mg PO DAILY 08/04/15 Ascorbic Acid [Vitamin C*] 500 mg PO DAILY 08/04/15 B-Complex with Vitamin C [Vitamin B-Complex & C] 1 each PO DAILY 08/04/15 Cholecalciferol (Vitamin D3) [Vitamin D3] 1,000 unit PO DAILY 08/04/15 Cinnamon Bark [Cinnamon] 500 mg PO DAILY 08/04/15 Docosahexanoic AC/Epa [Fish Oil 1,000 MG*] 1,000 mg PO BID 08/04/15 Etodolac [Lodine Xl] 500 mg PO DAILY 08/04/15 Ginkgo Biloba Hartrandt Extract [Ginkgo Biloba] 60 mg PO DAILY 08/04/15 Losartan Potassium [Cozaar] 100 mg PO DAILY 08/04/15 Metformin HCl [Glucophage*] 500 mg PO BIDWM 08/04/15 Multivitamin [Multivitamins] 1 each PO DAILY 08/04/15 Niacin [Niacin ER] 1,000 mg PO DAILY 08/04/15 Vitamin E [Vitamin E*] 400 iu PO DAILY 08/04/15 Ciprofloxacin HCl [Cipro 500 MG Tablet] 500 mg PO BID #12 tab 08/06/15 Codeine/APAP [Tylenol #3*] 1 tab PO Q6HP PRN #30 tab 08/06/15 Promethazine Tab [Phenergan*] 25 mg PO Q6HP PRN #10 tab 08/06/15 Valacyclovir [Valtrex*] 1,000 mg PO TID tab 10/14/22 Physician Discharge Instructions: 1. Please call and schedule a follow-up appointment with your PCP (Dr. Leong) in 3-5 days - I spoke with Dr. Leong, who will schedule you for an ultrasound of your arm tomorrow to exclude any blood clots - He will also schedule you for an ultrasound of the enlarged lymph node in your right armpit in 2-3 weeks to make sure the lymph node has decreased in size - In regards to your Daigle cyst in your knee, please follow-up with Dr. Leong for further recommendations 2. Please call and schedule a follow-up appointment with Cardiology (Dr. Tabares) in 5-7 days Diet: AHA Activity: Ad alexander Followup: Juan Antonio Leong MD [Primary Care Provider] - Dany Tabares MD [ACTIVE - CAN ADMIT] - Time spent managing pt's care (in minutes): 40
[2022-10-14 15:22] VITALS: O2SAT 93
[2022-10-14] MEDS ORDERED: ENOXAPARIN 40 MG/0.4 ML SQ SCH (17:00)
--- NOTE | 2022-10-14 20:10 | CON ---
Date of Consultation: 10/14/2022 Reason For Consultation: Chest pain. History Of Present Illness: 62-year-old male, history of hypertension, dyslipidemia, and diabetes, p resented with chest pain, retrosternal, pressure-like, no radiation, not related to exertion and sinc e the hospitalization has been chest pain free and his cardiac enzymes are negative. He has a funera l that he has to attend to and he would like to be released and also he does follow up with a cardiol ogist at [place], Dr. Manning. Past Medical History: As outlined above in the HPI. Medications: Refer to reconciliation sheet for detailed list. Allergies: NO KNOWN DRUG ALLERGIES. Family History: No premature coronary artery disease or cancer. Social History: Does not smoke or drink. Does not use any drugs. Review of Systems: All systems were reviewed, they were negative except what was mentioned in HPI. Physical Examination: Vital Signs: Reviewed. Head and Neck: Pupils are equal, reactive to light. Intact eye movements. No JVD. No cervical lym phadenopathy. Neck is supple. Thyroid is not enlarged. Lungs: Clear to auscultation bilaterally. No rhonchi, wheezing, or crackles. No accessory muscle u se. Heart: Regular rate and rhythm. No extra sounds. Abdomen: Soft, nontender. Bowel sounds positive. No organomegaly. No masses or hernia. No rigidi ty or rebound. Extremities: No edema, clubbing, or cyanosis. Intact pulses. Skin: No rash. No nodule. Neurologic: Alert, awake, oriented x3. No acute focal deficits appreciated. Investigations: Labs were reviewed. Cardiac enzymes x3 are negative. Assessment And Recommendations: 1.Chest pain with multiple risk factors, but cardiac enzymes are negative and he needs to be release d for a to attend today. I asked him to follow up with his wet sander to obtain a stress t est and to continue baby aspirin and to report any further chest pain back immediately to the emergen cy room. 2.Hypertension, blood pressure is controlled. 3.Herpes zoster. He has shingles. It is on the right side of the chest, probably contributing to h is chest pain and he is on valacyclovir. SR/MODL Voice ID: [id number] Report ID: [id number]
[2022-10-14] MEDS ORDERED: ATORVASTATIN 40 MG TAB PO SCH (21:00)
== END 2022-10-14 14:00 | disposition home or self-care (01) ==
LOC: ER 20:39 → ERHOLD 10-14 02:01
PROVIDERS: ADMIT Internal Medicine; ATTEND Internal Medicine
DX: R07.9 Chest pain, unspecified (principal); B02.9 Zoster without complications; E11.9 Type 2 diabetes mellitus without complications; I10 Essential (primary) hypertension; E78.5 Hyperlipidemia, unspecified; M10.9 Gout, unspecified; N40.0 Benign prostatic hyperplasia without lower urinary tract symptoms
CPT/HCPCS: 36415; 71045; 71275; 80048; 80061; 80076; 82947; 83036; 83690; 83735; 83880; 84439; 84443; 84484; 85025; 85379; 85610; 93005; 93306; 93970; G0378; J1650; Q9967